=== PATIENT | female | born 1940 | race Caucasian/White ===

== ENCOUNTER → 2018-01-11 10:50 | Outpatient (CLI) | payer MEDICARE, BC, SELFPAY ==
[2018-01-11 12:29] LABS: Alanine Aminotransferase 30 IU/L (9-52); Albumin 3.7 g/dL (3.5-5.0); Albumin Globulin Ratio 1.2 (1.0-2.8); Alkaline Phosphatase 81 U/L (38-126); Aspartate Aminotransferase 25 IU/L (14-36); BUN Creatinine Ratio 34.3 (6-22); Bilirubin Total 0.5 mg/dL (0.2-1.3); Blood Urea Nitrogen 24 mg/dL (7-17); Calcium 9.1 mg/dL (8.4-10.2); Carbon Dioxide 31 mmol/L (22-32); Chloride 101 mmol/L (98-107); Estimated Glomerular Filt Rate > 60.0 mL/min (>60); Globulin 3.2 g/dL (1.7-4.1); Glucose 87 mg/dL (80-110); HEMOLYSIS 21 (0-50); Potassium 4.5 mmol/L (3.4-5.1); Sodium 141 mmol/L (137-145); Total Protein 6.9 g/dL (6.3-8.2)
== END ==
PROVIDERS: PCP Family Medicine; Visit Provider Internal Medicine Cardiovascular Disease
DX: I48.0 Paroxysmal atrial fibrillation (principal); R00.2 Palpitations
CPT/HCPCS: 36415; 80053

== ENCOUNTER 2018-01-19 07:28 | Day surgery (SDC) | payer MEDICARE, BC, SELFPAY ==
[2018-01-19] MEDS: PROPARACAINE 0.5% OPHTH SOL 2 DROPS EYE-OP (08:21)
[2018-01-19 08:25] VITALS: BP 163/80; PULSE 59; RESP 16; TEMP 36.3; O2SAT 96; BMI 23.4
[2018-01-19] MEDS: CATARACT EYE COMPOUND (10 DROPS/SYRINGE) 3 DROPS EYE-OP (08:26)
--- NOTE | 2018-01-19 09:14 | PM.PREOP ---
Pre-operative Note Interval Note Pre-op Check: History & Physical Reviewed by Physician
[2018-01-19] MEDS: CHONDROIDTIN/SOD HYALURONATE 1.05 ML SYRINGE INTRAOCULA (09:23)
[2018-01-19] MEDS: MOXIFLOXACIN OPHTH DROPS 3 ML BOTTLE 2 DROPS INJ (09:23)
[2018-01-19] MEDS: TRIAMCINOLONE 50 MG/5 ML VIAL INJ (09:23)
[2018-01-19] MEDS: LIDOCAINE JELLY 2% 5 ML 1 APPLIC TOP (09:24)
[2018-01-19] MEDS: BALANCED SALT IRRIG SOLN NO.2 500 ML, EPINEPHrine 1 MG IRR (09:24)
[2018-01-19] MEDS: TETRACAINE 0.5% OPHTH DROPS 15 ML 2 DROPS EYE-LEFT (09:25)
[2018-01-19] MEDS: PHENYLEPHRINE/LIDOCAINE 3ML VIAL (OR) EYE-OP (09:26)
--- NOTE | 2018-01-19 09:34 | P.OP_ITS ---
Operative Date/Time/Diagnoses - Pre-op diagnosis: Cataract Left eye Post-op diagnosis: same Procedure & Clinicians Surgeon: Zuhair Helton Anesthesia Type: MAC +/- and Sedation Operative Notes Procedure in detail: Patient brought to the operating suite. Tetracaine drops placed in the left eye. Patient was prepped and draped in sterile manner. Wire lid speculum was placed in the eye. Betadine drops were placed on the eye. This was irrigated. Lidocaine jelly was placed on the eye. A paracentesis port was created with a side-port blade. 0.1 mL 1% preservative free lidocaine was injected into the anterior chamber. The anterior chamber was deepened with viscoelastic. 2.6 mm keratome was used to create a temporal clear corneal incision. Cystotome and Utrata forceps were used to create continuous tear capsulorrhexis. Balanced salt solution was used to hydro dissect the nucleus. The phacoemulsification handpiece was inserted and the nucleus was removed using the stop and chop technique. The irrigation aspiration handpiece was inserted and the remaining cortex was removed. Anterior chamber was deepened with viscoelastic. An Castro ZCB00 intraocular lens with a power of 22.5 was injected into the capsular bag. Irrigation aspiration handpiece was inserted and the remaining viscoelastic was removed. Incision was hydrated with balanced salt solution and found to be leak free with pressure with Weck- Mary sponges. 0.1 mL Vigamox injected anterior chamber. 0.3 mL Kenalog 10 mg was injected subconjunctivally. Lid speculum was removed. The patient left the operating room in excellent condition. Complications: none Condition: stable Disposition: same day surgery
[2018-01-19 09:39] VITALS: BP 139/74; PULSE 56; RESP 15; TEMP 36.3; O2SAT 98
== END 2018-01-19 09:51 ==
PROVIDERS: Family Provider Family Medicine; PCP Family Medicine; Visit Provider Ophthalmology
DX: H25.12 Age-related nuclear cataract, left eye (principal); I10 Essential (primary) hypertension
CPT/HCPCS: J0171; J2250; J3010; J3301

== ENCOUNTER 2018-02-16 07:01 | Day surgery (SDC) | payer MEDICARE, BC, SELFPAY ==
[2018-02-16 07:12] VITALS: BMI 23.4
[2018-02-16] MEDS: PROPARACAINE 0.5% OPHTH SOL 2 DROPS EYE-OP (07:18)
[2018-02-16 07:20] VITALS: BP 151/75; PULSE 52; RESP 20; TEMP 36; O2SAT 99
[2018-02-16] MEDS: CATARACT EYE COMPOUND (10 DROPS/SYRINGE) 3 DROPS EYE-OP (07:31)
--- NOTE | 2018-02-16 08:24 | SUR.OPER ---
Supine on eye stretcher, head on extension cradle secured with tape. Arms tucked at sides with blanket. Pillow under knees.
--- NOTE | 2018-02-16 08:29 | PM.PREOP ---
Pre-operative Note Interval Note Pre-op Check: History & Physical Reviewed by Physician
--- NOTE | 2018-02-16 08:30 | P.OP_ITS ---
Operative Date/Time/Diagnoses Pre-op diagnosis: Cataract Right eye Post-op diagnosis: same Procedure & Clinicians Procedure: Cataract Surgery Same procedure as scheduled: Yes Surgeon: Zuhair Helton Anesthesia Type: MAC +/- and Sedation Operative Notes Procedure in detail: Patient brought to the operating suite. Tetracaine drops placed in the right eye. Patient was prepped and draped in sterile manner. Wire lid speculum was placed in the eye. Betadine drops were placed on the eye. This was irrigated. Lidocaine jelly was placed on the eye. A paracentesis port was created with a side-port blade. 0.1 mL 1% preservative free lidocaine was injected into the anterior chamber. The anterior chamber was deepened with viscoelastic. 2.6 mm keratome was used to create a temporal clear corneal incision. Cystotome and Utrata forceps were used to create continuous tear capsulorrhexis. Balanced salt solution was used to hydro dissect the nucleus. The phacoemulsification handpiece was inserted and the nucleus was removed using the stop and chop technique. The irrigation aspiration handpiece was inserted and the remaining cortex was removed. Anterior chamber was deepened with viscoelastic. An Castro ZCB00 intraocular lens with a power of 22.5 was injected into the capsular bag. Irrigation aspiration handpiece was inserted and the remaining viscoelastic was removed. Incision was hydrated with balanced salt solution and found to be leak free with pressure with Weck- Mary sponges. 0.1 mL Vigamox injected anterior chamber. 0.3 mL Kenalog 10 mg was injected subconjunctivally. Lid speculum was removed. The patient left the operating room in excellent condition. Complications: none Condition: stable Disposition: same day surgery
[2018-02-16] MEDS: TRIAMCINOLONE 50 MG/5 ML VIAL INJ (08:34)
[2018-02-16] MEDS: PHENYLEPHRINE/LIDOCAINE 3ML VIAL (OR) EYE-OP (08:35)
[2018-02-16] MEDS: BALANCED SALT IRRIG SOLN NO.2 500 ML, EPINEPHrine 1 MG IRR (08:35)
[2018-02-16] MEDS: TETRACAINE 0.5% OPHTH DROPS 15 ML 2 DROPS EYE-RIGHT (08:36)
[2018-02-16] MEDS: CHONDROIDTIN/SOD HYALURONATE 1.05 ML SYRINGE INTRAOCULA (08:36)
[2018-02-16] MEDS: MOXIFLOXACIN OPHTH DROPS 3 ML BOTTLE 2 DROPS INJ (08:37)
[2018-02-16] MEDS: LIDOCAINE JELLY 2% 5 ML 1 APPLIC TOP (08:37)
[2018-02-16 08:50] VITALS: BP 129/64; PULSE 53; RESP 20; TEMP 36; O2SAT 93
== END 2018-02-16 08:53 | disposition home or self-care (01) ==
PROVIDERS: Family Provider Family Medicine; PCP Family Medicine; Visit Provider Ophthalmology
DX: H25.11 Age-related nuclear cataract, right eye (principal); I10 Essential (primary) hypertension
CPT/HCPCS: J0171; J2250; J3010; J3301; V2787

== ENCOUNTER → 2018-03-17 08:22 | Outpatient (CLI) | payer MEDICARE, BC, SELFPAY ==
--- NOTE | 2018-03-17 | DI.MG.S_ITS ---
BILATERAL DIGITAL SCREENING MAMMOGRAM 3D/2D WITH CAD: 03/17/2018 Comparison is made to exams dated: 03/10/2016 mammogram - [facility], 01/15/2006 mammogram, and 11/15/2004 mammogram - [facility]. The tissue of both breasts is heterogeneously dense. This may lower the sensitivity of mammography. Current study was also evaluated with a Computer Aided Detection (CAD) system. No significant masses, calcifications, or other findings are seen in either breast. There has been no significant interval change. IMPRESSION: NEGATIVE There is no mammographic evidence of malignancy. A 1 year screening mammogram is recommended. This exam was interpreted at Station ID: [id number]. NOTE: For mammograms, a report in lay terms will be sent to the patient. Approximately 15% of breast malignancies will not be visualized mammographically. In the management of a palpable breast mass, a negative mammogram must not discourage biopsy of a clinically suspicious lesion. Electronically Signed By: Rafat terrazas/[email or web address]:03/17/2018 17:26:27 letter sent: Normal Exam ACR BI-RADS Category 1: Negative [id number]
== END ==
PROVIDERS: Family Provider Family Medicine; PCP Family Medicine; Visit Provider Family Medicine
DX: Z12.31 Encounter for screening mammogram for malignant neoplasm of breast (principal)
CPT/HCPCS: 77063; 77067

== ENCOUNTER → 2018-06-16 14:02 | Outpatient (CLI) | payer MEDICARE, BC, SELFPAY ==
[2018-06-16 15:03] LABS: Blood Urea Nitrogen 33 mg/dL (7-17); Carbon Dioxide 31 mmol/L (22-32); Chloride 103 mmol/L (98-107); Estimated Glomerular Filt Rate > 60.0 mL/min (>60); Glucose 96 mg/dL (80-110); HEMOLYSIS 23 (0-50); Potassium 4.1 mmol/L (3.4-5.1); Sodium 142 mmol/L (137-145)
== END ==
PROVIDERS: Family Provider Family Medicine; PCP Family Medicine; Visit Provider Internal Medicine Cardiovascular Disease
DX: I48.0 Paroxysmal atrial fibrillation (principal)
CPT/HCPCS: 36415; 80048

== ENCOUNTER 2019-02-25 15:15 | Outpatient (RCR) | payer MEDICARE, BC, SELFPAY ==
--- NOTE | 2018-12-31 14:30 | PT.OPPOC ---
Current Diagnoses Pain in right shoulder (12/31/18) Cervicalgia (12/31/18) Provider Visit Care Team Role Provider Type Amalia Watson DO Primary Care Provider Physician Specialty: Family Practice Address: [address] [place] [address], [id number] Email: [email or web address] Anguiano Attending Provider Advanced Service Station Manager Specialty: [facility] Practice Address: [address] [place] [address], [id number] Email: Plan Of Care PT-OP-T Assessment and Plan Start: 12/31/18 16:47 Freq: Status: Active Protocol: Document 12/31/18 14:30 DLM (Rec: 12/31/18 18:09 DLM [id number]) Physical Therapy Assessment Rehab Potential Rehabilitation Potential Good Evaluation Complexity Number of Personal Factors/Comorbidities 1-2 Number of Body Systems Impaired 4 or More Clinical Presentation at Evaluation Evolving Impairments Impairments Functional Activities Pain Posture ROM Soft Tissue Mobility Strength Goals Four Impairment Limited functional use of right UE Short Term Goal (STG) Pt will be able to do her normal ADL's without increased pain STG Duration 4 weeks Rn Maternal Child Goal (LTG) Pt will be able to return to normal household and recreational activities without increased pain LTG Duration 6 weeks Three Impairment Impaired posture Short Term Goal (STG) Resolve right sidebend of her neck in resting position STG Duration 4 weeks Rn Maternal Child Goal (LTG) Pt will demonstrate erect posture with increased postural awareness LTG Duration 6 weeks Two Impairment Limited cervical AROM Short Term Goal (STG) Increase her cervical flexion and rotation to 75%, increase her lateral flexion to 20% STG Duration 4 weeks Rn Maternal Child Goal (LTG) Increase her lateral flexion to 50% LTG Duration 6 weeks One Impairment Pain at 4/10, constant Short Term Goal (STG) Decrease her cervical area pain to intermittent STG Duration 4 weeks Longterm Goal (LTG) Decrease her cervical pain to 1/10 or less LTG Duration 6 weeks Assessment Summary Assessment Pt presents with an acute cervical strain. Her case is complicated by a baseline stiffness in the cervical report per pt reports. She has no radicular symptoms at this time but does have increased cervical pain with use of her right UE. Pt is very active at baseline. She is a good candidate for Physical therapy to address the above impairments. Physical Therapy Plan Frequency and Duration Frequency of Treatment 2x/Week Duration of Treatment 6 weeks Plan of Care Start Date 12/31/18 Plan of Care End Date 03/02/19 Therapeutic Interventions Therapeutic Interventions Home Exercise Program Joint Mobilizations Manual Therapy Patient/Caregiver Education Self-Care/Home Management Soft Tissue Mobilization Taping Therapeutic Activities Therapeutic Exercises Modalities Cold Pack/Ice Massage Electric Stimulation Hot Packs Ultrasound Next Visit Focus/Plan Next Note Type Treatment Note Next Visit Plan start cervical and postural exercises, trial UBE Plan of Care Dates Plan of Care Start Date 12/31/18 Plan of Care End Date 03/02/19 Please Sign and Return: I have reviewed this Plan of Care and certify that the skilled therapy services above are required to meet the patient?s needs. Physician Signature Date Printed Name and Credentials
--- NOTE | 2018-12-31 14:30 | PT.OIE ---
Addendum entered and electronically signed by Maddi Grover, PT 01/03/19 15:16: Ultrasound also performed to right cervical area in sitting x 8 min @1.3 W/cm2, continuous Original Note: Current Diagnoses Pain in right shoulder (12/31/18) Cervicalgia (12/31/18) Past Surgical History Status post hernia repair Status post hysterectomy Provider Visit Care Team Role Provider Type Amalai Watson DO Primary Care Provider Physician Specialty: Family Practice Address: [address] [place] [address], [id number] Email: [email or web address] KEMAL Anguiano Attending Provider Advanced Unit Educator Specialty: [facility] Practice Address: [address] [place] [address], [id number] Email: Physical Therapy Initial Evaluation PT-OP-A Visit Information Start: 12/31/18 16:47 Freq: Status: Active Protocol: Document 12/31/18 14:30 DLM (Rec: 12/31/18 18:09 DLM [id number]) Out-Patient Physical Therapy Visit Information Visit Information Visit Type Initial Evaluation Visit Start Time 14:30 Visit Stop Time 15:20 Total Visit Minutes 50 Visit Number 1 Number of SENIOR JAVA UI DEVELOPER Visits 0 Evaluation Information Evaluation Date 12/31/18 PT-OP-B Current Condition Start: 12/31/18 16:47 Freq: Status: Active Protocol: Document 12/31/18 14:30 DLM (Rec: 12/31/18 18:09 DLM [id number]) Current Condition History of Current Condition Onset Date 12/29/18 Current Complaints right sided neck pain History of Current Condition She woke up with severe pain in the right side of her neck. She is not aware of any injury. The day before she was weeding in her garden. One week ago she was helping her children move. Before that she was staying with family sleeping on an air mattress. She has noted stiffness in her neck for a while but it is never this painful. She is also having pain in her neck if she tries to lift or push with her right UE. She saw her physician today. Prior Treatments and Tests none Future Testing and Treatments Planned none Prior Functional Status Baseline Function- ADL's Independent Baseline Function- Mobility Independent Baseline Function- Gait Independent without device, community distances Baseline Function- Recreation/Hobbies She does exercises classes/ routines. She has notes stiffness in her neck that limits how far she can move during exercises. She likes to garden. Current Functional Impairments (Reported) Functional Limitations- ADL's Her had to help her put her bra on today due to the pain. She has increased pain getting clothes out of the closet. She can not push up with right UE. Functional Limitations- Mobility/Gait Her helped her get out of bed today due to the pain. She can not push herself up with right UE to get out of bed. Her gait has not been affected. Functional Limitations- Recreation/ She is unable to garden at Hobbies this time. Personal Factors Other Personal Factors That May Effect Her Spouse is also attending Therapy/Recovery Physical Therapy for neck/back pain. PT-OP-C Subjective Start: 12/31/18 16:47 Freq: Status: Active Protocol: Document 12/31/18 14:30 DLM (Rec: 12/31/18 18:09 [facility] [id number]) OP-PT Pain Assessment Location Right Neck Intensity 4 Scale Used Numeric (1 - 10) Description Aching Tightness Frequency Constant Radiating Location none Pain Aggravating Factors Changing Position Other Pain Aggravating Factors reaching up with right UE, moving head, pushing with right UE Pain Alleviating Factors Meditation Other Pain Alleviating Factors Tylenol has helped Home Pain Medication Use Pain Medications Used Yes: Aspirin and tylenol used Pain Behaviors Pain Behaviors Guarding Wincing PT-OP-J Posture/Palpation/Skin Start: 12/31/18 16:47 Freq: Status: Active Protocol: Document 12/31/18 14:30 DLM (Rec: 12/31/18 18:09 [facility] [id number]) Posture Evaluation Position Sitting Evaluation View Anterior Head/C-Spine Posture Side Bent Right Forward Head Shoulder Posture (L) Rounded (R) Rounded (R) Elevated Palpation Assessment Location One Palpation Location Cervical Palpation Findings Soft Tissue Tightness Tenderness Trigger Point Palpation Details right cervical tenderness with point tenderness at C5, tightness right UT/rhomboids/ scalenes, tightness right thoracic paraspinals PT-OP-K Range of Motion Start: 12/31/18 16:47 Freq: Status: Active Protocol: Document 12/31/18 14:30 DLM (Rec: 12/31/18 18:09 DLM [id number]) Cervical Spine Range of Motion Cervical Spine Active Percentage Testing Position Sitting Flexion 50 Extension 75 Rotation Left 50 Rotation Right 50 Lateral Flexion Left 0 Lateral Flexion Right 2 ROM Limitations Soft Tissue Tightness Pain Comments pain with bilateral rotation and left lateral flexion Shoulder Goniometric Range of Motion Shoulder Measured in Degrees Left Active Shoulder ROM WFL Yes Right Active Shoulder ROM WFL Yes PT-OP-L Special Tests Start: 12/31/18 16:47 Freq: Status: Active Protocol: Document 12/31/18 14:30 DLM (Rec: 12/31/18 18:10 DLM [id number]) Special Tests Cervical Spine Special Tests Foraminal Compression Test Results negative Traction Test Results increased cervical pain on right PT-OP-M Strength Start: 12/31/18 16:47 Freq: Status: Active Protocol: Document 12/31/18 14:30 DLM (Rec: 12/31/18 18:09 DL [id number]) Cervical Spine Strength Cervical Spine Manual Muscle Testing Testing Position Sitting Flexion (C1-2) 4- Good- Extension 4- Good- Rotation Left 4 Good Rotation Right 4 Good Lateral Flexion Left (C3) 4- Good- Lateral Flexion Right (C3) 4- Good- Shoulder Strength Shoulder Manual Muscle Testing Right Flexion 5 Normal Extension 5 Normal Abduction (C5) 5 Normal Adduction 5 Normal External Rotation 5 Normal Internal Rotation 5 Normal Left Flexion 5 Normal Extension 5 Normal Abduction (C5) 5 Normal Adduction 5 Normal External Rotation 5 Normal Internal Rotation 5 Normal Elbow/Forearm Strength Elbow and Forearm Manual Muscle Testing Right Flexion (C6) 5 Normal Extension (C7) 5 Normal Left Flexion (C6) 5 Normal Extension (C7) 5 Normal Wrist Strength Wrist Manual Muscle Testing Right Flexion (C7) 5 Normal Extension (C6) 5 Normal Left Flexion (C7) 5 Normal Extension (C6) 5 Normal Hand Home Health Lvn/Pinch Strength Hand Dominance Hand Dominance Right PT-OP-Q Treatments Start: 12/31/18 16:47 Freq: Status: Active Protocol: Document 12/31/18 14:30 DLM (Rec: 12/31/18 18:09 DLM [id number]) Therapeutic Exercises Sitting Exercises 2 Sitting Exercise Name cervical AROM Side bilateral Reps/Minutes 5 each motion Comments pain-free range 1 Sitting Exercise Name posterior shoulder rolls Side bilateral Reps/Minutes 10 PT-OP-T Assessment and Plan Start: 12/31/18 16:47 Freq: Status: Active Protocol: Document 12/31/18 14:30 DLM (Rec: 12/31/18 18:09 DLM [id number]) Physical Therapy Assessment Rehab Potential Rehabilitation Potential Good Evaluation Complexity Number of Personal Factors/Comorbidities 1-2 Number of Body Systems Impaired 4 or More Clinical Presentation at Evaluation Evolving Impairments Impairments Functional Activities Pain Posture ROM Soft Tissue Mobility Strength Goals Four Impairment Limited functional use of right UE Short Term Goal (STG) Pt will be able to do her normal ADL's without increased pain STG Duration 4 weeks Conference Service Coordinator Goal (LTG) Pt will be able to return to normal household and recreational activities without increased pain LTG Duration 6 weeks Three Impairment Impaired posture Short Term Goal (STG) Resolve right sidebend of her neck in resting position STG Duration 4 weeks Conference Service Coordinator Goal (LTG) Pt will demonstrate erect posture with increased postural awareness LTG Duration 6 weeks Two Impairment Limited cervical AROM Short Term Goal (STG) Increase her cervical flexion and rotation to 75%, increase her lateral flexion to 20% STG Duration 4 weeks Group Home Goal (LTG) Increase her lateral flexion to 50% LTG Duration 6 weeks One Impairment Pain at 4/10, constant Short Term Goal (STG) Decrease her cervical area pain to intermittent STG Duration 4 weeks Conference Service Coordinator Goal (LTG) Decrease her cervical pain to 1/10 or less LTG Duration 6 weeks Assessment Summary Assessment Pt presents with an acute cervical strain. Her case is complicated by a baseline stiffness in the cervical report per pt reports. She has no radicular symptoms at this time but does have increased cervical pain with use of her right UE. Pt is very active at baseline. She is a good candidate for Physical therapy to address the above impairments. Physical Therapy Plan Frequency and Duration Frequency of Treatment 2x/Week Duration of Treatment 6 weeks Plan of Care Start Date 12/31/18 Plan of Care End Date 03/02/19 Therapeutic Interventions Therapeutic Interventions Home Exercise Program Joint Mobilizations Manual Therapy Patient/Caregiver Education Self-Care/Home Management Soft Tissue Mobilization Taping Therapeutic Activities Therapeutic Exercises Modalities Cold Pack/Ice Massage Electric Stimulation Hot Packs Ultrasound Next Visit Focus/Plan Next Note Type Treatment Note Next Visit Plan start cervical and postural exercises, trial UBE
--- NOTE | 2019-01-03 11:45 | PT.OTN ---
Current Diagnoses Pain in right shoulder (01/03/19) Cervicalgia (01/03/19) Physical Therapy Treatment Note PT-OP-A Visit Information Start: 12/31/18 16:47 Freq: Status: Active Protocol: Document 01/03/19 11:45 DLM (Rec: 01/03/19 15:14 DLM [id number]) Out-Patient Physical Therapy Visit Information Visit Information Visit Type Treatment Note Visit Start Time 11:43 Visit Stop Time 12:22 Total Visit Minutes 39 Visit Number 2 Number of WIRE COILER MACHINE OPERATOR Visits 0 Evaluation Information Evaluation Date 12/31/18 Precautions Precautions cardiac ablation scheduled for January 05 PT-OP-B Current Condition Start: 12/31/18 16:47 Freq: Status: Active Protocol: Document 12/31/18 14:30 DLM (Rec: 12/31/18 18:09 DLM [id number]) Current Condition History of Current Condition Onset Date 12/29/18 Current Complaints right sided neck pain History of Current Condition She woke up with severe pain in the right side of her neck. She is not aware of any injury. The day before she was weeding in her garden. One week ago she was helping her children move. Before that she was staying with family sleeping on an air mattress. She has noted stiffness in her neck for a while but it is never this painful. She is also having pain in her neck if she tries to lift or push with her right UE. She saw her physician today. Prior Treatments and Tests none Future Testing and Treatments Planned none Prior Functional Status Baseline Function- ADL's Independent Baseline Function- Mobility Independent Baseline Function- Gait Independent without device, community distances Baseline Function- Recreation/Hobbies She does exercises classes/ routines. She has notes stiffness in her neck that limits how far she can move during exercises. She likes to garden. Current Functional Impairments (Reported) Functional Limitations- ADL's Her had to help her put her bra on today due to the pain. She has increased pain getting clothes out of the closet. She can not push up with right UE. Functional Limitations- Mobility/Gait Her helped her get out of bed today due to the pain. She can not push herself up with right UE to get out of bed. Her gait has not been affected. Functional Limitations- Recreation/ She is unable to garden at Hobbies this time. Personal Factors Other Personal Factors That May Effect Her Spouse is also attending Therapy/Recovery Physical Therapy for neck/back pain. PT-OP-C Subjective Start: 12/31/18 16:47 Freq: Status: Active Protocol: Document 01/03/19 11:45 DLM (Rec: 01/03/19 15:15 DLM [id number]) OP-PT Subjective Patient Comments Patient Comments She reports she has been better since Thursday appt. The Tylenol still helps and she notes more soreness if she does not take it. She feels ok to drive now. Cardiac ablation scheduled for 01/05. Patient Reported Progress Improving PT-OP-J Posture/Palpation/Skin Start: 12/31/18 16:47 Freq: Status: Active Protocol: Document 12/31/18 14:30 DLM (Rec: 12/31/18 18:09 DLM [id number]) Posture Evaluation Position Sitting Evaluation View Anterior Head/C-Spine Posture Side Bent Right Forward Head Shoulder Posture (L) Rounded (R) Rounded (R) Elevated Palpation Assessment Location One Palpation Location Cervical Palpation Findings Soft Tissue Tightness Tenderness Trigger Point Palpation Details right cervical tenderness with point tenderness at C5, tightness right UT/rhomboids/ scalenes, tightness right thoracic paraspinals PT-OP-K Range of Motion Start: 12/31/18 16:47 Freq: Status: Active Protocol: Document 12/31/18 14:30 DLM (Rec: 12/31/18 18:09 DLM [id number]) Cervical Spine Range of Motion Cervical Spine Active Percentage Testing Position Sitting Flexion 50 Extension 75 Rotation Left 50 Rotation Right 50 Lateral Flexion Left 0 Lateral Flexion Right 2 ROM Limitations Soft Tissue Tightness Pain Comments pain with bilateral rotation and left sidebending Shoulder Goniometric Range of Motion Shoulder Measured in Degrees Left Active Shoulder ROM WFL Yes Right Active Shoulder ROM WFL Yes PT-OP-L Special Tests Start: 12/31/18 16:47 Freq: Status: Active Protocol: Document 12/31/18 14:30 DLM (Rec: 12/31/18 18:10 DLM [id number]) Special Tests Cervical Spine Special Tests Foraminal Compression Test Results negative Traction Test Results increased cervical pain on right PT-OP-M Strength Start: 12/31/18 16:47 Freq: Status: Active Protocol: Document 12/31/18 14:30 DLM (Rec: 12/31/18 18:09 DLM [id number]) Cervical Spine Strength Cervical Spine Manual Muscle Testing Testing Position Sitting Flexion (C1-2) 4- Good- Extension 4- Good- Rotation Left 4 Good Rotation Right 4 Good Lateral Flexion Left (C3) 4- Good- Lateral Flexion Right (C3) 4- Good- Shoulder Strength Shoulder Manual Muscle Testing Right Flexion 5 Normal Extension 5 Normal Abduction (C5) 5 Normal Adduction 5 Normal External Rotation 5 Normal Internal Rotation 5 Normal Left Flexion 5 Normal Extension 5 Normal Abduction (C5) 5 Normal Adduction 5 Normal External Rotation 5 Normal Internal Rotation 5 Normal Elbow/Forearm Strength Elbow and Forearm Manual Muscle Testing Right Flexion (C6) 5 Normal Extension (C7) 5 Normal Left Flexion (C6) 5 Normal Extension (C7) 5 Normal Wrist Strength Wrist Manual Muscle Testing Right Flexion (C7) 5 Normal Extension (C6) 5 Normal Left Flexion (C7) 5 Normal Extension (C6) 5 Normal Hand Application Manager/Pinch Strength Hand Dominance Hand Dominance Right PT-OP-Q Treatments Start: 12/31/18 16:47 Freq: Status: Active Protocol: Document 01/03/19 11:45 DLM (Rec: 01/03/19 16:55 DLM [id number]) Therapeutic Exercises Supine Exercises 1 Supine Exercise Name foam roll postural stretch Equipment Used 1/2 foam roll Comments UE's at sides and over-head Sitting Exercises 4 Sitting Exercise Name UT stretch with towel Side bilateral Reps/Minutes 30 sec hold x 3 reps each side 3 Sitting Exercise Name scapular pinches Side bilateral Reps/Minutes 10 reps 2 Sitting Exercise Name cervical AROM Side bilateral Reps/Minutes 5 each motion Comments pain only with right rotation today 1 Sitting Exercise Name posterior shoulder rolls Side bilateral Reps/Minutes 10 PT-OP-R Modalities Start: 12/31/18 16:47 Freq: Status: Active Protocol: Document 01/03/19 11:45 DLM (Rec: 01/03/19 16:44 DLM [id number]) Ultrasound Therapy Treatment Right Neck Treatment Duration (minutes) 8 Patient Position Sitting Coupling Medium Ultrasound Gel Applicator Size (cm2) 10 Mode Setting Continuous Intensity Setting (w/cm2) 1.3 PT-OP-T Assessment and Plan Start: 12/31/18 16:47 Freq: Status: Active Protocol: Document 01/03/19 11:45 DLM (Rec: 01/03/19 16:51 DLM [id number]) Physical Therapy Assessment Goals Four Impairment Limited functional use of right UE Short Term Goal (STG) Pt will be able to do her normal ADL's without increased pain STG Duration 4 weeks Penitentiary Goal (LTG) Pt will be able to return to normal household and recreational activities without increased pain LTG Duration 6 weeks Three Impairment Impaired posture Short Term Goal (STG) Resolve right sidebend of her neck in resting position STG Duration 4 weeks Senior Asic Design Engineer Goal (LTG) Pt will demonstrate erect posture with increased postural awareness LTG Duration 6 weeks Two Impairment Limited cervical AROM Short Term Goal (STG) Increase her cervical flexion and rotation to 75%, increase her lateral flexion to 20% STG Duration 4 weeks Senior Asic Design Engineer Goal (LTG) Increase her lateral flexion to 50% LTG Duration 6 weeks One Impairment Pain at 4/10, constant Short Term Goal (STG) Decrease her cervical area pain to intermittent STG Duration 4 weeks Senior Asic Design Engineer Goal (LTG) Decrease her cervical pain to 1/10 or less LTG Duration 6 weeks Assessment Summary Assessment She reports good improvement in her neck pain. Improved ROM noted. No point tenderness noted to palpation of cervical area today. She tolerated her exercises well this visit. She feels the US helps her pain/tightness. She reports her physician has told her she will need to rest after her heart procedure for about a week. Will plan to resume therapy after that time. Physical Therapy Plan Frequency and Duration Frequency of Treatment 2x/Week Duration of Treatment 6 weeks Plan of Care Start Date 12/31/18 Plan of Care End Date 03/02/19 Therapeutic Interventions Therapeutic Interventions Home Exercise Program Joint Mobilizations Manual Therapy Patient/Caregiver Education Self-Care/Home Management Soft Tissue Mobilization Taping Therapeutic Activities Therapeutic Exercises Modalities Cold Pack/Ice Massage Electric Stimulation Hot Packs Ultrasound Next Visit Focus/Plan Next Note Type Treatment Note Next Visit Plan will be off for about a week after cardiac procedure, STM and continue postural exercises
--- NOTE | 2019-01-14 09:00 | PT.OTN ---
Current Diagnoses Pain in right shoulder (01/14/19) Cervicalgia (01/14/19) Physical Therapy Treatment Note PT-OP-A Visit Information Start: 12/31/18 16:47 Freq: Status: Active Protocol: Document 01/14/19 09:00 DLM (Rec: 01/14/19 10:17 DLM [id number]) Out-Patient Physical Therapy Visit Information Visit Information Visit Type Treatment Note Visit Start Time 09:00 Visit Stop Time 09:50 Total Visit Minutes 50 Visit Number 3 Number of SUPPORTIVE EMPLOYMENT CASE MANAGER Visits 0 Evaluation Information Evaluation Date 12/31/18 Precautions Precautions cardiac ablation scheduled for January 05, physician not able to complete so another appt in January PT-OP-B Current Condition Start: 12/31/18 16:47 Freq: Status: Active Protocol: Document 12/31/18 14:30 DLM (Rec: 12/31/18 18:09 DLM [id number]) Current Condition History of Current Condition Onset Date 12/29/18 Current Complaints right sided neck pain History of Current Condition She woke up with severe pain in the right side of her neck. She is not aware of any injury. The day before she was weeding in her garden. One week ago she was helping her children move. Before that she was staying with family sleeping on an air mattress. She has noted stiffness in her neck for a while but it is never this painful. She is also having pain in her neck if she tries to lift or push with her right UE. She saw her physician today. Prior Treatments and Tests none Future Testing and Treatments Planned none Prior Functional Status Baseline Function- ADL's Independent Baseline Function- Mobility Independent Baseline Function- Gait Independent without device, community distances Baseline Function- Recreation/Hobbies She does exercises classes/ routines. She has notes stiffness in her neck that limits how far she can move during exercises. She likes to garden. Current Functional Impairments (Reported) Functional Limitations- ADL's Her had to help her put her bra on today due to the pain. She has increased pain getting clothes out of the closet. She can not push up with right UE. Functional Limitations- Mobility/Gait Her helped her get out of bed today due to the pain. She can not push herself up with right UE to get out of bed. Her gait has not been affected. Functional Limitations- Recreation/ She is unable to garden at Hobbies this time. Personal Factors Other Personal Factors That May Effect Her Spouse is also attending Therapy/Recovery Physical Therapy for neck/back pain. PT-OP-C Subjective Start: 12/31/18 16:47 Freq: Status: Active Protocol: Document 01/14/19 09:00 DLM (Rec: 01/14/19 10:17 DLM [id number]) OP-PT Subjective Patient Comments Patient Comments Her neck has been better. She still has pain turning to the right. Patient Reported Progress Improving Patient Questionnaires Neck Disability Index NDI Score 10/50= 20% Neck Disability Index Impairment 20 to 39% Impaired (Score 10- 19) OP-PT Pain Assessment Location Right Neck Intensity 2 Scale Used Numeric (1 - 10) Description Aching Tightness Frequency Intermittent Other Pain Aggravating Factors turning head right PT-OP-J Posture/Palpation/Skin Start: 12/31/18 16:47 Freq: Status: Active Protocol: Document 12/31/18 14:30 DLM (Rec: 12/31/18 18:09 DLM [id number]) Posture Evaluation Position Sitting Evaluation View Anterior Head/C-Spine Posture Side Bent Right Forward Head Shoulder Posture (L) Rounded (R) Rounded (R) Elevated Palpation Assessment Location One Palpation Location Cervical Palpation Findings Soft Tissue Tightness Tenderness Trigger Point Palpation Details right cervical tenderness with point tenderness at C5, tightness right UT/rhomboids/ scalenes, tightness right thoracic paraspinals PT-OP-K Range of Motion Start: 12/31/18 16:47 Freq: Status: Active Protocol: Document 01/14/19 09:00 DLM (Rec: 01/14/19 10:19 DLM [id number]) Cervical Spine Range of Motion Cervical Spine Active Percentage Testing Position Sitting Flexion 80 Extension 90 Rotation Left 75 Rotation Right 60 Lateral Flexion Left 20 Lateral Flexion Right 25 ROM Limitations Soft Tissue Tightness Pain Comments right cervical pain with right rotation PT-OP-L Special Tests Start: 12/31/18 16:47 Freq: Status: Active Protocol: Document 12/31/18 14:30 DLM (Rec: 12/31/18 18:10 DLM [id number]) Special Tests Cervical Spine Special Tests Foraminal Compression Test Results negative Traction Test Results increased cervical pain on right PT-OP-M Strength Start: 12/31/18 16:47 Freq: Status: Active Protocol: Document 12/31/18 14:30 DLM (Rec: 12/31/18 18:09 DLM [id number]) Cervical Spine Strength Cervical Spine Manual Muscle Testing Testing Position Sitting Flexion (C1-2) 4- Good- Extension 4- Good- Rotation Left 4 Good Rotation Right 4 Good Lateral Flexion Left (C3) 4- Good- Lateral Flexion Right (C3) 4- Good- Shoulder Strength Shoulder Manual Muscle Testing Right Flexion 5 Normal Extension 5 Normal Abduction (C5) 5 Normal Adduction 5 Normal External Rotation 5 Normal Internal Rotation 5 Normal Left Flexion 5 Normal Extension 5 Normal Abduction (C5) 5 Normal Adduction 5 Normal External Rotation 5 Normal Internal Rotation 5 Normal Elbow/Forearm Strength Elbow and Forearm Manual Muscle Testing Right Flexion (C6) 5 Normal Extension (C7) 5 Normal Left Flexion (C6) 5 Normal Extension (C7) 5 Normal Wrist Strength Wrist Manual Muscle Testing Right Flexion (C7) 5 Normal Extension (C6) 5 Normal Left Flexion (C7) 5 Normal Extension (C6) 5 Normal Hand Concert Promoter/Pinch Strength Hand Dominance Hand Dominance Right PT-OP-Q Treatments Start: 12/31/18 16:47 Freq: Status: Active Protocol: Document 01/14/19 09:00 DLM (Rec: 01/14/19 10:17 DLM [id number]) Cardio Equipment Upper Body Ergometer (UBE) Duration (Minutes) 6 Other 3' forward and 3' backward Therapeutic Exercises Supine Exercises 1 Supine Exercise Name foam roll postural stretch Equipment Used 1/2 foam roll Comments UE's at sides and over-head Sitting Exercises 4 Sitting Exercise Name UT stretch holding edge of mat Side bilateral Reps/Minutes 20 sec hold x 3 reps each side 3 Sitting Exercise Name scapular pinches Side bilateral Reps/Minutes 10 reps 2 Sitting Exercise Name cervical AROM Side bilateral Reps/Minutes 5 each motion Comments pain only with right rotation today 1 Sitting Exercise Name posterior shoulder rolls Side bilateral Reps/Minutes 10 Manual Therapy Treatment Soft Tissue Mobilization 1 Body Location cervical area and UT's Mobilization Type Cross-Friction Sustained Pressure Trigger Point Release Intensity/Depth Moderate Body Position Supine Joint Mobilizations 1 Joint cervical spine Direction multi Grade II Body Position Supine Manual Traction Cervical Comments increased pain with any attempt PT-OP-R Modalities Start: 12/31/18 16:47 Freq: Status: Active Protocol: Document 01/03/19 11:45 DLM (Rec: 01/03/19 16:44 DLM [id number]) Ultrasound Therapy Treatment Right Neck Treatment Duration (minutes) 8 Patient Position Sitting Coupling Medium Ultrasound Gel Applicator Size (cm2) 10 Mode Setting Continuous Intensity Setting (w/cm2) 1.3 PT-OP-T Assessment and Plan Start: 12/31/18 16:47 Freq: Status: Active Protocol: Document 01/14/19 09:00 DLM (Rec: 01/14/19 10:17 DLM [id number]) Physical Therapy Assessment Goals Four Impairment Limited functional use of right UE Short Term Goal (STG) Pt will be able to do her normal ADL's without increased pain. 14- Met STG Duration 4 weeks Retirement Goal (LTG) Pt will be able to return to normal household and recreational activities without increased pain LTG Duration 6 weeks Three Impairment Impaired posture Short Term Goal (STG) Resolve right sidebend of her neck in resting position. 01/14- Improving STG Duration 4 weeks Retirement Goal (LTG) Pt will demonstrate erect posture with increased postural awareness LTG Duration 6 weeks Two Impairment Limited cervical AROM Short Term Goal (STG) Increase her cervical flexion and rotation to 75%, increase her lateral flexion to 20%. /14- Met STG Duration 4 weeks Retirement Goal (LTG) Increase her lateral flexion to 50% LTG Duration 6 weeks One Impairment Pain at 4/10, constant Short Term Goal (STG) Decrease her cervical area pain to intermittent. 6/14- Met STG Duration 4 weeks Retirement Goal (LTG) Decrease her cervical pain to 1/10 or less LTG Duration 6 weeks Progress Towards Goals Progress Towards Goals Progressing Toward Goals Progress Comments See comments on each goal Assessment Summary Assessment She has been out of therapy due to cardiac procedure. Her cervical pain continues to slowly improve. She tolerated her exercises well. STM improved her mobility. She continues to have increased pain on right side with any traction of her cervical spine . on right side. Physical Therapy Plan Frequency and Duration Frequency of Treatment 2x/Week Duration of Treatment 6 weeks Plan of Care Start Date 12/31/18 Plan of Care End Date 03/02/19 Therapeutic Interventions Therapeutic Interventions Home Exercise Program Joint Mobilizations Manual Therapy Patient/Caregiver Education Self-Care/Home Management Soft Tissue Mobilization Taping Therapeutic Activities Therapeutic Exercises Modalities Cold Pack/Ice Massage Electric Stimulation Hot Packs Ultrasound Next Visit Focus/Plan Next Note Type Treatment Note Next Visit Plan slowly advance cervical strengthening and postural ex
--- NOTE | 2019-01-18 14:04 | PT.OTN ---
Current Diagnoses Pain in right shoulder (01/18/19) Cervicalgia (01/18/19) Physical Therapy Treatment Note PT-OP-A Visit Information Start: 12/31/18 16:47 Freq: Status: Active Protocol: Document 01/18/19 13:55 AMH (Rec: 01/18/19 14:02 AMH [email or web address]) Out-Patient Physical Therapy Visit Information Visit Information Visit Type Treatment Note Visit Start Time 13:00 Visit Stop Time 13:55 Total Visit Minutes 55 Visit Number 4 PT-OP-B Current Condition Start: 12/31/18 16:47 Freq: Status: Active Protocol: Document 12/31/18 14:30 DLM (Rec: 12/31/18 18:09 DLM [id number]) Current Condition History of Current Condition Onset Date 12/29/18 Current Complaints right sided neck pain History of Current Condition She woke up with severe pain in the right side of her neck. She is not aware of any injury. The day before she was weeding in her garden. One week ago she was helping her children move. Before that she was staying with family sleeping on an air mattress. She has noted stiffness in her neck for a while but it is never this painful. She is also having pain in her neck if she tries to lift or push with her right UE. She saw her physician today. Prior Treatments and Tests none Future Testing and Treatments Planned none Prior Functional Status Baseline Function- ADL's Independent Baseline Function- Mobility Independent Baseline Function- Gait Independent without device, community distances Baseline Function- Recreation/Hobbies She does exercises classes/ routines. She has notes stiffness in her neck that limits how far she can move during exercises. She likes to garden. Current Functional Impairments (Reported) Functional Limitations- ADL's Her had to help her put her bra on today due to the pain. She has increased pain getting clothes out of the closet. She can not push up with right UE. Functional Limitations- Mobility/Gait Her helped her get out of bed today due to the pain. She can not push herself up with right UE to get out of bed. Her gait has not been affected. Functional Limitations- Recreation/ She is unable to garden at Hobbies this time. Personal Factors Other Personal Factors That May Effect Her Spouse is also attending Therapy/Recovery Physical Therapy for neck/back pain. PT-OP-C Subjective Start: 12/31/18 16:47 Freq: Status: Active Protocol: Document 01/18/19 13:55 AMH (Rec: 01/18/19 14:02 AMH [email or web address]) OP-PT Subjective Patient Comments Patient Comments Chhaya reports she did a lot of weeding and is sore today on the right side Patient Reported Progress Improving PT-OP-J Posture/Palpation/Skin Start: 12/31/18 16:47 Freq: Status: Active Protocol: Document 12/31/18 14:30 DLM (Rec: 12/31/18 18:09 DLM [id number]) Posture Evaluation Position Sitting Evaluation View Anterior Head/C-Spine Posture Side Bent Right Forward Head Shoulder Posture (L) Rounded (R) Rounded (R) Elevated Palpation Assessment Location One Palpation Location Cervical Palpation Findings Soft Tissue Tightness Tenderness Trigger Point Palpation Details right cervical tenderness with point tenderness at C5, tightness right UT/rhomboids/ scalenes, tightness right thoracic paraspinals PT-OP-K Range of Motion Start: 12/31/18 16:47 Freq: Status: Active Protocol: Document 01/14/19 09:00 DLM (Rec: 01/14/19 10:19 DLM [id number]) Cervical Spine Range of Motion Cervical Spine Active Percentage Testing Position Sitting Flexion 80 Extension 90 Rotation Left 75 Rotation Right 60 Lateral Flexion Left 20 Lateral Flexion Right 25 ROM Limitations Soft Tissue Tightness Pain Comments right cervical pain with right rotation PT-OP-L Special Tests Start: 12/31/18 16:47 Freq: Status: Active Protocol: Document 12/31/18 14:30 DLM (Rec: 12/31/18 18:10 DLM [id number]) Special Tests Cervical Spine Special Tests Foraminal Compression Test Results negative Traction Test Results increased cervical pain on right PT-OP-M Strength Start: 12/31/18 16:47 Freq: Status: Active Protocol: Document 12/31/18 14:30 DLM (Rec: 12/31/18 18:09 DLM [id number]) Cervical Spine Strength Cervical Spine Manual Muscle Testing Testing Position Sitting Flexion (C1-2) 4- Good- Extension 4- Good- Rotation Left 4 Good Rotation Right 4 Good Lateral Flexion Left (C3) 4- Good- Lateral Flexion Right (C3) 4- Good- Shoulder Strength Shoulder Manual Muscle Testing Right Flexion 5 Normal Extension 5 Normal Abduction (C5) 5 Normal Adduction 5 Normal External Rotation 5 Normal Internal Rotation 5 Normal Left Flexion 5 Normal Extension 5 Normal Abduction (C5) 5 Normal Adduction 5 Normal External Rotation 5 Normal Internal Rotation 5 Normal Elbow/Forearm Strength Elbow and Forearm Manual Muscle Testing Right Flexion (C6) 5 Normal Extension (C7) 5 Normal Left Flexion (C6) 5 Normal Extension (C7) 5 Normal Wrist Strength Wrist Manual Muscle Testing Right Flexion (C7) 5 Normal Extension (C6) 5 Normal Left Flexion (C7) 5 Normal Extension (C6) 5 Normal Hand Pipe Line Inspector/Pinch Strength Hand Dominance Hand Dominance Right PT-OP-Q Treatments Start: 12/31/18 16:47 Freq: Status: Active Protocol: Document 01/18/19 13:55 AMH (Rec: 01/18/19 14:02 [facility] [email or web address]) Cardio Equipment Upper Body Ergometer (UBE) Duration (Minutes) 6 Other 3' forward and 3' backward Therapeutic Exercises Supine Exercises 1 Supine Exercise Name foam roll postural stretch Equipment Used 1/2 foam roll Comments UE's at sides and over-head Sitting Exercises 4 Sitting Exercise Name UT stretch holding edge of mat Side bilateral Reps/Minutes 20 sec hold x 3 reps each side 3 Sitting Exercise Name scapular pinches Side bilateral Reps/Minutes 10 reps 2 Sitting Exercise Name cervical AROM Side bilateral Reps/Minutes 5 each motion Comments pain only with right rotation today 1 Sitting Exercise Name posterior shoulder rolls Side bilateral Reps/Minutes 10 Manual Therapy Treatment Soft Tissue Mobilization 1 Body Location cervical area and UT's Mobilization Type Cross-Friction Sustained Pressure Trigger Point Release Intensity/Depth Moderate Body Position Supine Joint Mobilizations 2 Joint seated upper thoracic PA mobs PT-OP-R Modalities Start: 12/31/18 16:47 Freq: Status: Active Protocol: Document 01/18/19 14:02 AMH (Rec: 01/18/19 14:04 [facility] [email or web address]) Ultrasound Therapy Treatment Right Neck Patient Position Sitting Coupling Medium Ultrasound Gel Applicator Size (cm2) 5 Mode Setting Continuous Duty Cycle 100% Intensity Setting (w/cm2) 1.5 PT-OP-T Assessment and Plan Start: 12/31/18 16:47 Freq: Status: Active Protocol: Document 01/18/19 13:55 AMH (Rec: 01/18/19 14:02 [facility] [email or web address]) Physical Therapy Assessment Assessment Summary Assessment worked on postural modifications today and talked about avoiding upper cervical extension when seated at the computer as she is sore after 30 min of computer work. Physical Therapy Plan Frequency and Duration Frequency of Treatment 2x/Week Duration of Treatment 6 weeks Plan of Care Start Date 12/31/18 Plan of Care End Date 03/02/19 Therapeutic Interventions Therapeutic Interventions Home Exercise Program Joint Mobilizations Manual Therapy Patient/Caregiver Education Self-Care/Home Management Soft Tissue Mobilization Taping Therapeutic Activities Therapeutic Exercises Modalities Cold Pack/Ice Massage Electric Stimulation Hot Packs Ultrasound Next Visit Focus/Plan Next Note Type Treatment Note Next Visit Plan slowly advance cervical strengthening and postural ex
--- NOTE | 2019-01-25 15:31 | PT.OTN ---
Current Diagnoses Pain in right shoulder (01/25/19) Cervicalgia (01/25/19) Physical Therapy Treatment Note PT-OP-A Visit Information Start: 12/31/18 16:47 Freq: Status: Active Protocol: Document 01/25/19 15:19 SA (Rec: 01/25/19 15:31 SA [email or web address]) Out-Patient Physical Therapy Visit Information Visit Information Visit Type Treatment Note Visit Start Time 12:15 Visit Stop Time 13:00 Total Visit Minutes 45 Visit Number 5 Number of DIRECTOR STYLE Visits 1 PT-OP-B Current Condition Start: 12/31/18 16:47 Freq: Status: Active Protocol: Document 12/31/18 14:30 DLM (Rec: 12/31/18 18:09 DLM [id number]) Current Condition History of Current Condition Onset Date 12/29/18 Current Complaints right sided neck pain History of Current Condition She woke up with severe pain in the right side of her neck. She is not aware of any injury. The day before she was weeding in her garden. One week ago she was helping her children move. Before that she was staying with family sleeping on an air mattress. She has noted stiffness in her neck for a while but it is never this painful. She is also having pain in her neck if she tries to lift or push with her right UE. She saw her physician today. Prior Treatments and Tests none Future Testing and Treatments Planned none Prior Functional Status Baseline Function- ADL's Independent Baseline Function- Mobility Independent Baseline Function- Gait Independent without device, community distances Baseline Function- Recreation/Hobbies She does exercises classes/ routines. She has notes stiffness in her neck that limits how far she can move during exercises. She likes to garden. Current Functional Impairments (Reported) Functional Limitations- ADL's Her had to help her put her bra on today due to the pain. She has increased pain getting clothes out of the closet. She can not push up with right UE. Functional Limitations- Mobility/Gait Her helped her get out of bed today due to the pain. She can not push herself up with right UE to get out of bed. Her gait has not been affected. Functional Limitations- Recreation/ She is unable to garden at Hobbies this time. Personal Factors Other Personal Factors That May Effect Her Spouse is also attending Therapy/Recovery Physical Therapy for neck/back pain. PT-OP-C Subjective Start: 12/31/18 16:47 Freq: Status: Active Protocol: Document 01/25/19 15:19 SA (Rec: 01/25/19 15:31 SA [email or web address]) OP-PT Subjective Patient Comments Patient Comments Pt reports improvement in neck pain overall but cervical rotation to R and L trigger symptoms. PT-OP-J Posture/Palpation/Skin Start: 12/31/18 16:47 Freq: Status: Active Protocol: Document 12/31/18 14:30 DLM (Rec: 12/31/18 18:09 DLM [id number]) Posture Evaluation Position Sitting Evaluation View Anterior Head/C-Spine Posture Side Bent Right Forward Head Shoulder Posture (L) Rounded (R) Rounded (R) Elevated Palpation Assessment Location One Palpation Location Cervical Palpation Findings Soft Tissue Tightness Tenderness Trigger Point Palpation Details right cervical tenderness with point tenderness at C5, tightness right UT/rhomboids/ scalenes, tightness right thoracic paraspinals PT-OP-K Range of Motion Start: 12/31/18 16:47 Freq: Status: Active Protocol: Document 01/14/19 09:00 DLM (Rec: 01/14/19 10:19 DLM [id number]) Cervical Spine Range of Motion Cervical Spine Active Percentage Testing Position Sitting Flexion 80 Extension 90 Rotation Left 75 Rotation Right 60 Lateral Flexion Left 20 Lateral Flexion Right 25 ROM Limitations Soft Tissue Tightness Pain Comments right cervical pain with right rotation PT-OP-L Special Tests Start: 12/31/18 16:47 Freq: Status: Active Protocol: Document 12/31/18 14:30 DLM (Rec: 12/31/18 18:10 DLM [id number]) Special Tests Cervical Spine Special Tests Foraminal Compression Test Results negative Traction Test Results increased cervical pain on right PT-OP-M Strength Start: 12/31/18 16:47 Freq: Status: Active Protocol: Document 12/31/18 14:30 DLM (Rec: 12/31/18 18:09 DLM [id number]) Cervical Spine Strength Cervical Spine Manual Muscle Testing Testing Position Sitting Flexion (C1-2) 4- Good- Extension 4- Good- Rotation Left 4 Good Rotation Right 4 Good Lateral Flexion Left (C3) 4- Good- Lateral Flexion Right (C3) 4- Good- Shoulder Strength Shoulder Manual Muscle Testing Right Flexion 5 Normal Extension 5 Normal Abduction (C5) 5 Normal Adduction 5 Normal External Rotation 5 Normal Internal Rotation 5 Normal Left Flexion 5 Normal Extension 5 Normal Abduction (C5) 5 Normal Adduction 5 Normal External Rotation 5 Normal Internal Rotation 5 Normal Elbow/Forearm Strength Elbow and Forearm Manual Muscle Testing Right Flexion (C6) 5 Normal Extension (C7) 5 Normal Left Flexion (C6) 5 Normal Extension (C7) 5 Normal Wrist Strength Wrist Manual Muscle Testing Right Flexion (C7) 5 Normal Extension (C6) 5 Normal Left Flexion (C7) 5 Normal Extension (C6) 5 Normal Hand Pigment Presser/Pinch Strength Hand Dominance Hand Dominance Right PT-OP-Q Treatments Start: 12/31/18 16:47 Freq: Status: Active Protocol: Document 01/25/19 15:19 SA (Rec: 01/25/19 15:31 SA [email or web address]) Cardio Equipment Upper Body Ergometer (UBE) Duration (Minutes) 6 Other 3' forward and 3' backward Therapeutic Exercises Supine Exercises 1 Supine Exercise Name foam roll postural stretch Equipment Used 1/2 foam roll Comments UE's at sides and over-head Sitting Exercises 4 Sitting Exercise Name UT stretch holding edge of mat Side bilateral Reps/Minutes 20 sec hold x 3 reps each side 3 Sitting Exercise Name scapular pinches Side bilateral Reps/Minutes 15 2 Sitting Exercise Name cervical AROM Side bilateral Reps/Minutes 5 each motion Comments pain only with right rotation today 1 Sitting Exercise Name posterior shoulder rolls Side bilateral Reps/Minutes 15 Standing Exercises Postural Wall stretch Side bilateral Equipment Used wall Reps/Minutes 30 x 3 Comments tactile cues for positioning Manual Therapy Treatment Soft Tissue Mobilization 1 Body Location cervical area and UT's Mobilization Type Cross-Friction Sustained Pressure Trigger Point Release Intensity/Depth Moderate Body Position Supine Joint Mobilizations 1 Joint cervical spine Direction multi Grade II Body Position Supine PT-OP-R Modalities Start: 12/31/18 16:47 Freq: Status: Active Protocol: Document 01/25/19 15:19 SA (Rec: 01/25/19 15:31 SA [email or web address]) Ultrasound Therapy Treatment Right Neck Treatment Duration (minutes) 8 Patient Position Sitting Coupling Medium Ultrasound Gel Applicator Size (cm2) 5 Duty Cycle 100% Intensity Setting (w/cm2) 1.5 PT-OP-T Assessment and Plan Start: 12/31/18 16:47 Freq: Status: Active Protocol: Document 01/25/19 15:19 SA (Rec: 01/25/19 15:31 [email or web address]) Physical Therapy Assessment Assessment Summary Assessment Pt tolerated ther ex and manual therapy well, plans to do yard work this afternoon. Education for form/position and avoiding forward bent position during yard work, taking breaks and use of a stool to sit on. Physical Therapy Plan Next Visit Focus/Plan Next Note Type Treatment Note Next Visit Plan slowly advance cervical strengthening and postural ex
--- NOTE | 2019-01-28 12:57 | PT.OTN ---
Current Diagnoses Pain in right shoulder (01/28/19) Cervicalgia (01/28/19) Physical Therapy Treatment Note PT-OP-A Visit Information Start: 12/31/18 16:47 Freq: Status: Active Protocol: Document 01/28/19 11:15 AMB (Rec: 01/28/19 12:56 AMB [email or web address]) Out-Patient Physical Therapy Visit Information Visit Information Visit Type Treatment Note Visit Start Time 11:15 Visit Stop Time 12:00 Total Visit Minutes 45 Visit Number 6 Number of HOT BOX CHECKER Visits 0 PT-OP-B Current Condition Start: 12/31/18 16:47 Freq: Status: Active Protocol: Document 12/31/18 14:30 DLM (Rec: 12/31/18 18:09 DLM [id number]) Current Condition History of Current Condition Onset Date 12/29/18 Current Complaints right sided neck pain History of Current Condition She woke up with severe pain in the right side of her neck. She is not aware of any injury. The day before she was weeding in her garden. One week ago she was helping her children move. Before that she was staying with family sleeping on an air mattress. She has noted stiffness in her neck for a while but it is never this painful. She is also having pain in her neck if she tries to lift or push with her right UE. She saw her physician today. Prior Treatments and Tests none Future Testing and Treatments Planned none Prior Functional Status Baseline Function- ADL's Independent Baseline Function- Mobility Independent Baseline Function- Gait Independent without device, community distances Baseline Function- Recreation/Hobbies She does exercises classes/ routines. She has notes stiffness in her neck that limits how far she can move during exercises. She likes to garden. Current Functional Impairments (Reported) Functional Limitations- ADL's Her had to help her put her bra on today due to the pain. She has increased pain getting clothes out of the closet. She can not push up with right UE. Functional Limitations- Mobility/Gait Her helped her get out of bed today due to the pain. She can not push herself up with right UE to get out of bed. Her gait has not been affected. Functional Limitations- Recreation/ She is unable to garden at Hobbies this time. Personal Factors Other Personal Factors That May Effect Her Spouse is also attending Therapy/Recovery Physical Therapy for neck/back pain. PT-OP-C Subjective Start: 12/31/18 16:47 Freq: Status: Active Protocol: Document 01/28/19 11:15 AMB (Rec: 01/28/19 12:56 AMB [email or web address]) OP-PT Subjective Patient Comments Patient Comments Pt continues to report improvement with symptoms, notices it the most when looking right while driving. PT-OP-J Posture/Palpation/Skin Start: 12/31/18 16:47 Freq: Status: Active Protocol: Document 12/31/18 14:30 DLM (Rec: 12/31/18 18:09 DLM [id number]) Posture Evaluation Position Sitting Evaluation View Anterior Head/C-Spine Posture Side Bent Right Forward Head Shoulder Posture (L) Rounded (R) Rounded (R) Elevated Palpation Assessment Location One Palpation Location Cervical Palpation Findings Soft Tissue Tightness Tenderness Trigger Point Palpation Details right cervical tenderness with point tenderness at C5, tightness right UT/rhomboids/ scalenes, tightness right thoracic paraspinals PT-OP-K Range of Motion Start: 12/31/18 16:47 Freq: Status: Active Protocol: Document 01/14/19 09:00 DLM (Rec: 01/14/19 10:19 DLM [id number]) Cervical Spine Range of Motion Cervical Spine Active Percentage Testing Position Sitting Flexion 80 Extension 90 Rotation Left 75 Rotation Right 60 Lateral Flexion Left 20 Lateral Flexion Right 25 ROM Limitations Soft Tissue Tightness Pain Comments right cervical pain with right rotation PT-OP-L Special Tests Start: 12/31/18 16:47 Freq: Status: Active Protocol: Document 12/31/18 14:30 DLM (Rec: 12/31/18 18:10 DLM [id number]) Special Tests Cervical Spine Special Tests Foraminal Compression Test Results negative Traction Test Results increased cervical pain on right PT-OP-M Strength Start: 12/31/18 16:47 Freq: Status: Active Protocol: Document 12/31/18 14:30 DLM (Rec: 12/31/18 18:09 DLM [id number]) Cervical Spine Strength Cervical Spine Manual Muscle Testing Testing Position Sitting Flexion (C1-2) 4- Good- Extension 4- Good- Rotation Left 4 Good Rotation Right 4 Good Lateral Flexion Left (C3) 4- Good- Lateral Flexion Right (C3) 4- Good- Shoulder Strength Shoulder Manual Muscle Testing Right Flexion 5 Normal Extension 5 Normal Abduction (C5) 5 Normal Adduction 5 Normal External Rotation 5 Normal Internal Rotation 5 Normal Left Flexion 5 Normal Extension 5 Normal Abduction (C5) 5 Normal Adduction 5 Normal External Rotation 5 Normal Internal Rotation 5 Normal Elbow/Forearm Strength Elbow and Forearm Manual Muscle Testing Right Flexion (C6) 5 Normal Extension (C7) 5 Normal Left Flexion (C6) 5 Normal Extension (C7) 5 Normal Wrist Strength Wrist Manual Muscle Testing Right Flexion (C7) 5 Normal Extension (C6) 5 Normal Left Flexion (C7) 5 Normal Extension (C6) 5 Normal Hand Director Child Abuse Therapy/Pinch Strength Hand Dominance Hand Dominance Right PT-OP-Q Treatments Start: 12/31/18 16:47 Freq: Status: Active Protocol: Document 01/28/19 11:15 AMB (Rec: 01/28/19 12:56 AMB [email or web address]) Therapeutic Exercises Sitting Exercises 4 Sitting Exercise Name UT stretch holding edge of mat Side bilateral Reps/Minutes 20 sec hold x 3 reps each side 3 Sitting Exercise Name scapular pinches Side bilateral Reps/Minutes 15 2 Sitting Exercise Name cervical AROM Side bilateral Reps/Minutes 5 each motion 1 Sitting Exercise Name posterior shoulder rolls Side bilateral Reps/Minutes 15 Standing Exercises 1 Standing Exercise Name low row Resistance #1 t band Reps/Minutes 2x10 Comments vc to avoid shoulder elevation Manual Therapy Treatment Soft Tissue Mobilization 1 Body Location cervical area and UT's Mobilization Type Cross-Friction Sustained Pressure Trigger Point Release Intensity/Depth Moderate Body Position Supine Joint Mobilizations 1 Joint cervical spine Direction multi Grade II Body Position Supine Manual Traction Cervical Comments tolerated well today Manual Techniques 1 Type contract relax Comments for R cervical rotation PT-OP-R Modalities Start: 12/31/18 16:47 Freq: Status: Active Protocol: Document 01/28/19 11:15 AMB (Rec: 01/28/19 12:57 AMB [email or web address]) Hot Pack/Cold Pack Treatment Hot Pack Location cervical Patient Position Hooklying Treatment Duration (minutes) 12 Patient Tolerance Good PT-OP-T Assessment and Plan Start: 12/31/18 16:47 Freq: Status: Active Protocol: Document 01/28/19 11:15 AMB (Rec: 01/28/19 12:56 AMB [email or web address]) Physical Therapy Assessment Assessment Summary Assessment Pt encouraged to continue stretching neck and to modify yardwork so that she is only out there for 1 hour or less. Physical Therapy Plan Next Visit Focus/Plan Next Note Type Treatment Note Next Visit Plan slowly advance cervical strengthening and postural ex
--- NOTE | 2019-02-01 15:49 | PT.OTN ---
Current Diagnoses Pain in right shoulder (02/01/19) Cervicalgia (02/01/19) Physical Therapy Treatment Note PT-OP-A Visit Information Start: 12/31/18 16:47 Freq: Status: Active Protocol: Document 02/01/19 15:41 SA (Rec: 02/01/19 15:49 SA [email or web address]) Out-Patient Physical Therapy Visit Information Visit Information Visit Type Treatment Note Visit Start Time 13:45 Visit Stop Time 14:33 Total Visit Minutes 48 Visit Number 7 Number of HYPERION ADMINISTRATOR Visits 1 PT-OP-B Current Condition Start: 12/31/18 16:47 Freq: Status: Active Protocol: Document 12/31/18 14:30 DLM (Rec: 12/31/18 18:09 DLM [id number]) Current Condition History of Current Condition Onset Date 12/29/18 Current Complaints right sided neck pain History of Current Condition She woke up with severe pain in the right side of her neck. She is not aware of any injury. The day before she was weeding in her garden. One week ago she was helping her children move. Before that she was staying with family sleeping on an air mattress. She has noted stiffness in her neck for a while but it is never this painful. She is also having pain in her neck if she tries to lift or push with her right UE. She saw her physician today. Prior Treatments and Tests none Future Testing and Treatments Planned none Prior Functional Status Baseline Function- ADL's Independent Baseline Function- Mobility Independent Baseline Function- Gait Independent without device, community distances Baseline Function- Recreation/Hobbies She does exercises classes/ routines. She has notes stiffness in her neck that limits how far she can move during exercises. She likes to garden. Current Functional Impairments (Reported) Functional Limitations- ADL's Her had to help her put her bra on today due to the pain. She has increased pain getting clothes out of the closet. She can not push up with right UE. Functional Limitations- Mobility/Gait Her helped her get out of bed today due to the pain. She can not push herself up with right UE to get out of bed. Her gait has not been affected. Functional Limitations- Recreation/ She is unable to garden at Hobbies this time. Personal Factors Other Personal Factors That May Effect Her Spouse is also attending Therapy/Recovery Physical Therapy for neck/back pain. PT-OP-C Subjective Start: 12/31/18 16:47 Freq: Status: Active Protocol: Document 02/01/19 15:41 SA (Rec: 02/01/19 15:49 SA [email or web address]) OP-PT Subjective Patient Comments Patient Comments Pt reports decreased symproms with increased daily activity, admits she is not always consistent with HEP. PT-OP-J Posture/Palpation/Skin Start: 12/31/18 16:47 Freq: Status: Active Protocol: Document 12/31/18 14:30 DLM (Rec: 12/31/18 18:09 DLM [id number]) Posture Evaluation Position Sitting Evaluation View Anterior Head/C-Spine Posture Side Bent Right Forward Head Shoulder Posture (L) Rounded (R) Rounded (R) Elevated Palpation Assessment Location One Palpation Location Cervical Palpation Findings Soft Tissue Tightness Tenderness Trigger Point Palpation Details right cervical tenderness with point tenderness at C5, tightness right UT/rhomboids/ scalenes, tightness right thoracic paraspinals PT-OP-K Range of Motion Start: 12/31/18 16:47 Freq: Status: Active Protocol: Document 01/14/19 09:00 DLM (Rec: 01/14/19 10:19 DLM [id number]) Cervical Spine Range of Motion Cervical Spine Active Percentage Testing Position Sitting Flexion 80 Extension 90 Rotation Left 75 Rotation Right 60 Lateral Flexion Left 20 Lateral Flexion Right 25 ROM Limitations Soft Tissue Tightness Pain Comments right cervical pain with right rotation PT-OP-L Special Tests Start: 12/31/18 16:47 Freq: Status: Active Protocol: Document 12/31/18 14:30 DLM (Rec: 12/31/18 18:10 DLM [id number]) Special Tests Cervical Spine Special Tests Foraminal Compression Test Results negative Traction Test Results increased cervical pain on right PT-OP-M Strength Start: 12/31/18 16:47 Freq: Status: Active Protocol: Document 12/31/18 14:30 DLM (Rec: 12/31/18 18:09 DLM [id number]) Cervical Spine Strength Cervical Spine Manual Muscle Testing Testing Position Sitting Flexion (C1-2) 4- Good- Extension 4- Good- Rotation Left 4 Good Rotation Right 4 Good Lateral Flexion Left (C3) 4- Good- Lateral Flexion Right (C3) 4- Good- Shoulder Strength Shoulder Manual Muscle Testing Right Flexion 5 Normal Extension 5 Normal Abduction (C5) 5 Normal Adduction 5 Normal External Rotation 5 Normal Internal Rotation 5 Normal Left Flexion 5 Normal Extension 5 Normal Abduction (C5) 5 Normal Adduction 5 Normal External Rotation 5 Normal Internal Rotation 5 Normal Elbow/Forearm Strength Elbow and Forearm Manual Muscle Testing Right Flexion (C6) 5 Normal Extension (C7) 5 Normal Left Flexion (C6) 5 Normal Extension (C7) 5 Normal Wrist Strength Wrist Manual Muscle Testing Right Flexion (C7) 5 Normal Extension (C6) 5 Normal Left Flexion (C7) 5 Normal Extension (C6) 5 Normal Hand Chalk Machine Operator/Pinch Strength Hand Dominance Hand Dominance Right PT-OP-Q Treatments Start: 12/31/18 16:47 Freq: Status: Active Protocol: Document 02/01/19 15:41 SA (Rec: 02/01/19 15:49 SA [email or web address]) Cardio Equipment Upper Body Ergometer (UBE) Duration (Minutes) 6 Other 3' forward and 3' backward Therapeutic Exercises Sitting Exercises 4 Sitting Exercise Name UT stretch holding edge of mat Side bilateral Reps/Minutes 20 sec hold x 3 reps each side 3 Sitting Exercise Name scapular pinches Side bilateral Reps/Minutes 15 2 Sitting Exercise Name cervical AROM Side bilateral Reps/Minutes 5 each motion 1 Sitting Exercise Name posterior shoulder rolls Side bilateral Reps/Minutes 15 Standing Exercises 1 Standing Exercise Name low row Resistance #1 t band Reps/Minutes 2x10 Comments vc to avoid shoulder elevation Postural Wall stretch Side bilateral Equipment Used wall Reps/Minutes 30 x 3 Comments tactile cues for positioning Manual Therapy Treatment Soft Tissue Mobilization 1 Mobilization Type Cross-Friction Sustained Pressure Trigger Point Release Intensity/Depth Moderate Body Position Supine Joint Mobilizations 1 Joint cervical spine Direction multi Grade II Body Position Supine Manual Techniques 1 Type contract relax Comments for R cervical rotation PT-OP-R Modalities Start: 12/31/18 16:47 Freq: Status: Active Protocol: Document 02/01/19 15:41 SA (Rec: 02/01/19 15:49 SA [email or web address]) Hot Pack/Cold Pack Treatment Hot Pack Location cervical Patient Position Hooklying Treatment Duration (minutes) 12 Patient Tolerance Good Comments End of session Ultrasound Therapy Treatment Right Neck Treatment Duration (minutes) 8 Patient Position Sitting Coupling Medium Ultrasound Gel Applicator Size (cm2) 5 Duty Cycle 100% Intensity Setting (w/cm2) 1.5 PT-OP-T Assessment and Plan Start: 12/31/18 16:47 Freq: Status: Active Protocol: Document 02/01/19 15:41 SA (Rec: 02/01/19 15:49 SA [email or web address]) Physical Therapy Assessment Assessment Summary Assessment Pt progressing well, continued R UT/scalene tightness. Tolerating manual and exercise well. Physical Therapy Plan Next Visit Focus/Plan Next Note Type Treatment Note Next Visit Plan Re-visit postural correction with daily activity, progress cervical strengthening.
--- NOTE | 2019-02-04 15:46 | PT.OTN ---
Current Diagnoses Pain in right shoulder (02/04/19) Cervicalgia (02/04/19) Physical Therapy Treatment Note PT-OP-A Visit Information Start: 12/31/18 16:47 Freq: Status: Active Protocol: Document 02/04/19 15:38 SA (Rec: 02/04/19 15:46 SA [email or web address]) Out-Patient Physical Therapy Visit Information Visit Information Visit Type Treatment Note Visit Start Time 13:45 Visit Stop Time 14:30 Total Visit Minutes 45 Visit Number 8 Number of LAUNDRY MACHINE TENDER Visits 2 PT-OP-B Current Condition Start: 12/31/18 16:47 Freq: Status: Active Protocol: Document 12/31/18 14:30 DLM (Rec: 12/31/18 18:09 DLM [id number]) Current Condition History of Current Condition Onset Date 12/29/18 Current Complaints right sided neck pain History of Current Condition She woke up with severe pain in the right side of her neck. She is not aware of any injury. The day before she was weeding in her garden. One week ago she was helping her children move. Before that she was staying with family sleeping on an air mattress. She has noted stiffness in her neck for a while but it is never this painful. She is also having pain in her neck if she tries to lift or push with her right UE. She saw her physician today. Prior Treatments and Tests none Future Testing and Treatments Planned none Prior Functional Status Baseline Function- ADL's Independent Baseline Function- Mobility Independent Baseline Function- Gait Independent without device, community distances Baseline Function- Recreation/Hobbies She does exercises classes/ routines. She has notes stiffness in her neck that limits how far she can move during exercises. She likes to garden. Current Functional Impairments (Reported) Functional Limitations- ADL's Her had to help her put her bra on today due to the pain. She has increased pain getting clothes out of the closet. She can not push up with right UE. Functional Limitations- Mobility/Gait Her helped her get out of bed today due to the pain. She can not push herself up with right UE to get out of bed. Her gait has not been affected. Functional Limitations- Recreation/ She is unable to garden at Hobbies this time. Personal Factors Other Personal Factors That May Effect Her Spouse is also attending Therapy/Recovery Physical Therapy for neck/back pain. PT-OP-C Subjective Start: 12/31/18 16:47 Freq: Status: Active Protocol: Document 02/04/19 15:38 SA (Rec: 02/04/19 15:46 SA [email or web address]) OP-PT Subjective Patient Comments Patient Comments Pt feeling gradual improvements with mobility and pain. PT-OP-J Posture/Palpation/Skin Start: 12/31/18 16:47 Freq: Status: Active Protocol: Document 12/31/18 14:30 DLM (Rec: 12/31/18 18:09 DLM [id number]) Posture Evaluation Position Sitting Evaluation View Anterior Head/C-Spine Posture Side Bent Right Forward Head Shoulder Posture (L) Rounded (R) Rounded (R) Elevated Palpation Assessment Location One Palpation Location Cervical Palpation Findings Soft Tissue Tightness Tenderness Trigger Point Palpation Details right cervical tenderness with point tenderness at C5, tightness right UT/rhomboids/ scalenes, tightness right thoracic paraspinals PT-OP-K Range of Motion Start: 12/31/18 16:47 Freq: Status: Active Protocol: Document 01/14/19 09:00 DLM (Rec: 01/14/19 10:19 DLM [id number]) Cervical Spine Range of Motion Cervical Spine Active Percentage Testing Position Sitting Flexion 80 Extension 90 Rotation Left 75 Rotation Right 60 Lateral Flexion Left 20 Lateral Flexion Right 25 ROM Limitations Soft Tissue Tightness Pain Comments right cervical pain with right rotation PT-OP-L Special Tests Start: 12/31/18 16:47 Freq: Status: Active Protocol: Document 12/31/18 14:30 DLM (Rec: 12/31/18 18:10 DLM [id number]) Special Tests Cervical Spine Special Tests Foraminal Compression Test Results negative Traction Test Results increased cervical pain on right PT-OP-M Strength Start: 12/31/18 16:47 Freq: Status: Active Protocol: Document 12/31/18 14:30 DLM (Rec: 12/31/18 18:09 DLM [id number]) Cervical Spine Strength Cervical Spine Manual Muscle Testing Testing Position Sitting Flexion (C1-2) 4- Good- Extension 4- Good- Rotation Left 4 Good Rotation Right 4 Good Lateral Flexion Left (C3) 4- Good- Lateral Flexion Right (C3) 4- Good- Shoulder Strength Shoulder Manual Muscle Testing Right Flexion 5 Normal Extension 5 Normal Abduction (C5) 5 Normal Adduction 5 Normal External Rotation 5 Normal Internal Rotation 5 Normal Left Flexion 5 Normal Extension 5 Normal Abduction (C5) 5 Normal Adduction 5 Normal External Rotation 5 Normal Internal Rotation 5 Normal Elbow/Forearm Strength Elbow and Forearm Manual Muscle Testing Right Flexion (C6) 5 Normal Extension (C7) 5 Normal Left Flexion (C6) 5 Normal Extension (C7) 5 Normal Wrist Strength Wrist Manual Muscle Testing Right Flexion (C7) 5 Normal Extension (C6) 5 Normal Left Flexion (C7) 5 Normal Extension (C6) 5 Normal Hand Drafting Instructor/Pinch Strength Hand Dominance Hand Dominance Right PT-OP-Q Treatments Start: 12/31/18 16:47 Freq: Status: Active Protocol: Document 02/04/19 15:38 SA (Rec: 02/04/19 15:46 SA [email or web address]) Cardio Equipment Upper Body Ergometer (UBE) Duration (Minutes) 6 Other 3' forward and 3' backward Therapeutic Exercises Supine Exercises 1 Supine Exercise Name foam roll postural stretch Equipment Used 1/2 foam roll Reps/Minutes 3 min Comments UE's at sides and over-head Sitting Exercises 4 Sitting Exercise Name UT stretch holding edge of mat Side bilateral Reps/Minutes 20 sec hold x 3 reps each side 2 Sitting Exercise Name cervical AROM Side bilateral Reps/Minutes 10 each motion 1 Sitting Exercise Name posterior shoulder rolls Side bilateral Reps/Minutes 15 Standing Exercises 1 Standing Exercise Name low row Resistance # 2 band Reps/Minutes 2x10 Comments vc to avoid shoulder elevation Postural Wall stretch Side bilateral Equipment Used wall Reps/Minutes 30 x 3 Comments tactile cues for positioning Manual Therapy Treatment Soft Tissue Mobilization 1 Body Location cervical area and UT's Mobilization Type Cross-Friction Sustained Pressure Trigger Point Release Intensity/Depth Moderate Body Position Supine Joint Mobilizations 1 Joint cervical spine Direction multi Grade II Body Position Supine Manual Traction Cervical Body Position Supine Comments tolerated well today PT-OP-R Modalities Start: 12/31/18 16:47 Freq: Status: Active Protocol: Document 02/04/19 15:38 SA (Rec: 02/04/19 15:46 SA [email or web address]) Ultrasound Therapy Treatment Right Neck Treatment Duration (minutes) 8 Patient Position Sitting Coupling Medium Ultrasound Gel Applicator Size (cm2) 5 Duty Cycle 100% Intensity Setting (w/cm2) 1.5 PT-OP-T Assessment and Plan Start: 12/31/18 16:47 Freq: Status: Active Protocol: Document 02/04/19 15:38 SA (Rec: 02/04/19 15:46 SA [email or web address]) Physical Therapy Assessment Assessment Summary Assessment Pt tolerated supine thoracic EXT stretch well, plans to cont at home. Responding well to manual and exercise. Physical Therapy Plan Next Visit Focus/Plan Next Note Type Treatment Note Next Visit Plan Re-visit postural correction with daily activity, progress cervical strengthening.
--- NOTE | 2019-02-15 12:00 | PT.OTN ---
Current Diagnoses Pain in right shoulder (02/15/19) Cervicalgia (02/15/19) Physical Therapy Treatment Note PT-OP-A Visit Information Start: 12/31/18 16:47 Freq: Status: Active Protocol: Document 02/15/19 09:45 AMB (Rec: 02/15/19 09:56 AMB [id number]) Out-Patient Physical Therapy Visit Information Visit Information Visit Type Treatment Note Visit Start Time 09:45 Visit Stop Time 10:30 Total Visit Minutes 45 Visit Number 9 Number of STITCH BONDING MACHINE TENDER Visits 0 PT-OP-B Current Condition Start: 12/31/18 16:47 Freq: Status: Active Protocol: Document 12/31/18 14:30 DLM (Rec: 12/31/18 18:09 DLM [id number]) Current Condition History of Current Condition Onset Date 12/29/18 Current Complaints right sided neck pain History of Current Condition She woke up with severe pain in the right side of her neck. She is not aware of any injury. The day before she was weeding in her garden. One week ago she was helping her children move. Before that she was staying with family sleeping on an air mattress. She has noted stiffness in her neck for a while but it is never this painful. She is also having pain in her neck if she tries to lift or push with her right UE. She saw her physician today. Prior Treatments and Tests none Future Testing and Treatments Planned none Prior Functional Status Baseline Function- ADL's Independent Baseline Function- Mobility Independent Baseline Function- Gait Independent without device, community distances Baseline Function- Recreation/Hobbies She does exercises classes/ routines. She has notes stiffness in her neck that limits how far she can move during exercises. She likes to garden. Current Functional Impairments (Reported) Functional Limitations- ADL's Her had to help her put her bra on today due to the pain. She has increased pain getting clothes out of the closet. She can not push up with right UE. Functional Limitations- Mobility/Gait Her helped her get out of bed today due to the pain. She can not push herself up with right UE to get out of bed. Her gait has not been affected. Functional Limitations- Recreation/ She is unable to garden at Hobbies this time. Personal Factors Other Personal Factors That May Effect Her Spouse is also attending Therapy/Recovery Physical Therapy for neck/back pain. PT-OP-C Subjective Start: 12/31/18 16:47 Freq: Status: Active Protocol: Document 02/15/19 09:45 AMB (Rec: 02/15/19 09:56 AMB [id number]) OP-PT Subjective Patient Comments Patient Comments Pt fell on February 02 PT-OP-J Posture/Palpation/Skin Start: 12/31/18 16:47 Freq: Status: Active Protocol: Document 12/31/18 14:30 DLM (Rec: 12/31/18 18:09 DLM [id number]) Posture Evaluation Position Sitting Evaluation View Anterior Head/C-Spine Posture Side Bent Right Forward Head Shoulder Posture (L) Rounded (R) Rounded (R) Elevated Palpation Assessment Location One Palpation Location Cervical Palpation Findings Soft Tissue Tightness Tenderness Trigger Point Palpation Details right cervical tenderness with point tenderness at C5, tightness right UT/rhomboids/ scalenes, tightness right thoracic paraspinals PT-OP-K Range of Motion Start: 12/31/18 16:47 Freq: Status: Active Protocol: Document 01/14/19 09:00 DLM (Rec: 01/14/19 10:19 DLM [id number]) Cervical Spine Range of Motion Cervical Spine Active Percentage Testing Position Sitting Flexion 80 Extension 90 Rotation Left 75 Rotation Right 60 Lateral Flexion Left 20 Lateral Flexion Right 25 ROM Limitations Soft Tissue Tightness Pain Comments right cervical pain with right rotation PT-OP-L Special Tests Start: 12/31/18 16:47 Freq: Status: Active Protocol: Document 12/31/18 14:30 DLM (Rec: 12/31/18 18:10 DLM [id number]) Special Tests Cervical Spine Special Tests Foraminal Compression Test Results negative Traction Test Results increased cervical pain on right PT-OP-M Strength Start: 12/31/18 16:47 Freq: Status: Active Protocol: Document 12/31/18 14:30 DLM (Rec: 12/31/18 18:09 DLM [id number]) Cervical Spine Strength Cervical Spine Manual Muscle Testing Testing Position Sitting Flexion (C1-2) 4- Good- Extension 4- Good- Rotation Left 4 Good Rotation Right 4 Good Lateral Flexion Left (C3) 4- Good- Lateral Flexion Right (C3) 4- Good- Shoulder Strength Shoulder Manual Muscle Testing Right Flexion 5 Normal Extension 5 Normal Abduction (C5) 5 Normal Adduction 5 Normal External Rotation 5 Normal Internal Rotation 5 Normal Left Flexion 5 Normal Extension 5 Normal Abduction (C5) 5 Normal Adduction 5 Normal External Rotation 5 Normal Internal Rotation 5 Normal Elbow/Forearm Strength Elbow and Forearm Manual Muscle Testing Right Flexion (C6) 5 Normal Extension (C7) 5 Normal Left Flexion (C6) 5 Normal Extension (C7) 5 Normal Wrist Strength Wrist Manual Muscle Testing Right Flexion (C7) 5 Normal Extension (C6) 5 Normal Left Flexion (C7) 5 Normal Extension (C6) 5 Normal Hand Tentering Machine Feeder/Pinch Strength Hand Dominance Hand Dominance Right PT-OP-Q Treatments Start: 12/31/18 16:47 Freq: Status: Active Protocol: Document 02/15/19 09:45 AMB (Rec: 02/15/19 11:59 AMB [email or web address]) Therapeutic Exercises Sitting Exercises 4 Sitting Exercise Name UT stretch holding edge of mat Side bilateral Reps/Minutes 20 sec hold x 3 reps each side 1 Sitting Exercise Name posterior shoulder rolls Side bilateral Reps/Minutes 15 Standing Exercises 1 Standing Exercise Name low row Resistance # 2 band Reps/Minutes 2x10 Comments vc to avoid shoulder elevation Postural Wall stretch Side bilateral Equipment Used wall Reps/Minutes 30 x 3 Comments tactile cues for positioning Manual Therapy Treatment Soft Tissue Mobilization 1 Body Location cervical area and UT's Mobilization Type Cross-Friction Sustained Pressure Trigger Point Release Intensity/Depth Moderate Body Position Supine Joint Mobilizations 1 Joint cervical spine Direction multi Grade II Body Position Supine Manual Traction Cervical Body Position Supine Comments tolerated well today PT-OP-R Modalities Start: 12/31/18 16:47 Freq: Status: Active Protocol: Document 02/15/19 09:45 AMB (Rec: 02/15/19 11:59 AMB [email or web address]) Hot Pack/Cold Pack Treatment Hot Pack Location cervical Patient Position Hooklying Treatment Duration (minutes) 12 Patient Tolerance Good Comments End of session Ultrasound Therapy Treatment Right Neck Treatment Duration (minutes) 8 Patient Position Sitting Coupling Medium Ultrasound Gel Applicator Size (cm2) 5 Duty Cycle 100% Intensity Setting (w/cm2) 1.5 PT-OP-T Assessment and Plan Start: 12/31/18 16:47 Freq: Status: Active Protocol: Document 02/15/19 09:45 AMB (Rec: 02/15/19 11:59 AMB [email or web address]) Physical Therapy Assessment Assessment Summary Assessment Pt really noticing pain with head turns but not during everyday activities at this point. Physical Therapy Plan Next Visit Focus/Plan Next Note Type Treatment Note Next Visit Plan Re-visit postural correction with daily activity, progress cervical strengthening.
--- NOTE | 2019-02-18 15:49 | PT.OTN ---
Current Diagnoses Pain in right shoulder (02/18/19) Cervicalgia (02/18/19) Physical Therapy Treatment Note PT-OP-A Visit Information Start: 12/31/18 16:47 Freq: Status: Active Protocol: Document 02/18/19 15:40 SA (Rec: 02/18/19 15:49 SA [email or web address]) Out-Patient Physical Therapy Visit Information Visit Information Visit Type Treatment Note Visit Start Time 14:30 Visit Stop Time 13:16 Total Visit Minutes 46 Visit Number 10 Number of FIELD TRAINING AGENT Visits 1 PT-OP-B Current Condition Start: 12/31/18 16:47 Freq: Status: Active Protocol: Document 12/31/18 14:30 DLM (Rec: 12/31/18 18:09 DLM [id number]) Current Condition History of Current Condition Onset Date 12/29/18 Current Complaints right sided neck pain History of Current Condition She woke up with severe pain in the right side of her neck. She is not aware of any injury. The day before she was weeding in her garden. One week ago she was helping her children move. Before that she was staying with family sleeping on an air mattress. She has noted stiffness in her neck for a while but it is never this painful. She is also having pain in her neck if she tries to lift or push with her right UE. She saw her physician today. Prior Treatments and Tests none Future Testing and Treatments Planned none Prior Functional Status Baseline Function- ADL's Independent Baseline Function- Mobility Independent Baseline Function- Gait Independent without device, community distances Baseline Function- Recreation/Hobbies She does exercises classes/ routines. She has notes stiffness in her neck that limits how far she can move during exercises. She likes to garden. Current Functional Impairments (Reported) Functional Limitations- ADL's Her had to help her put her bra on today due to the pain. She has increased pain getting clothes out of the closet. She can not push up with right UE. Functional Limitations- Mobility/Gait Her helped her get out of bed today due to the pain. She can not push herself up with right UE to get out of bed. Her gait has not been affected. Functional Limitations- Recreation/ She is unable to garden at Hobbies this time. Personal Factors Other Personal Factors That May Effect Her Spouse is also attending Therapy/Recovery Physical Therapy for neck/back pain. PT-OP-C Subjective Start: 12/31/18 16:47 Freq: Status: Active Protocol: Document 02/18/19 15:40 SA (Rec: 02/18/19 15:49 SA [email or web address]) OP-PT Subjective Patient Comments Patient Comments Pt reports gradual improvement , was a little sore after last visit but feeling good today. PT-OP-J Posture/Palpation/Skin Start: 12/31/18 16:47 Freq: Status: Active Protocol: Document 12/31/18 14:30 DLM (Rec: 12/31/18 18:09 DLM [id number]) Posture Evaluation Position Sitting Evaluation View Anterior Head/C-Spine Posture Side Bent Right Forward Head Shoulder Posture (L) Rounded (R) Rounded (R) Elevated Palpation Assessment Location One Palpation Location Cervical Palpation Findings Soft Tissue Tightness Tenderness Trigger Point Palpation Details right cervical tenderness with point tenderness at C5, tightness right UT/rhomboids/ scalenes, tightness right thoracic paraspinals PT-OP-K Range of Motion Start: 12/31/18 16:47 Freq: Status: Active Protocol: Document 01/14/19 09:00 DLM (Rec: 01/14/19 10:19 DLM [id number]) Cervical Spine Range of Motion Cervical Spine Active Percentage Testing Position Sitting Flexion 80 Extension 90 Rotation Left 75 Rotation Right 60 Lateral Flexion Left 20 Lateral Flexion Right 25 ROM Limitations Soft Tissue Tightness Pain Comments right cervical pain with right rotation PT-OP-L Special Tests Start: 12/31/18 16:47 Freq: Status: Active Protocol: Document 12/31/18 14:30 DLM (Rec: 12/31/18 18:10 DLM [id number]) Special Tests Cervical Spine Special Tests Foraminal Compression Test Results negative Traction Test Results increased cervical pain on right PT-OP-M Strength Start: 12/31/18 16:47 Freq: Status: Active Protocol: Document 12/31/18 14:30 DLM (Rec: 12/31/18 18:09 DLM [id number]) Cervical Spine Strength Cervical Spine Manual Muscle Testing Testing Position Sitting Flexion (C1-2) 4- Good- Extension 4- Good- Rotation Left 4 Good Rotation Right 4 Good Lateral Flexion Left (C3) 4- Good- Lateral Flexion Right (C3) 4- Good- Shoulder Strength Shoulder Manual Muscle Testing Right Flexion 5 Normal Extension 5 Normal Abduction (C5) 5 Normal Adduction 5 Normal External Rotation 5 Normal Internal Rotation 5 Normal Left Flexion 5 Normal Extension 5 Normal Abduction (C5) 5 Normal Adduction 5 Normal External Rotation 5 Normal Internal Rotation 5 Normal Elbow/Forearm Strength Elbow and Forearm Manual Muscle Testing Right Flexion (C6) 5 Normal Extension (C7) 5 Normal Left Flexion (C6) 5 Normal Extension (C7) 5 Normal Wrist Strength Wrist Manual Muscle Testing Right Flexion (C7) 5 Normal Extension (C6) 5 Normal Left Flexion (C7) 5 Normal Extension (C6) 5 Normal Hand Jig Boring Machine Operator For Metal/Pinch Strength Hand Dominance Hand Dominance Right PT-OP-Q Treatments Start: 12/31/18 16:47 Freq: Status: Active Protocol: Document 02/18/19 15:40 SA (Rec: 02/18/19 15:49 SA [email or web address]) Cardio Equipment Upper Body Ergometer (UBE) Duration (Minutes) 6 Other 3' forward and 3' backward Therapeutic Exercises Supine Exercises 1 Supine Exercise Name foam roll postural stretch Equipment Used 1/2 foam roll Reps/Minutes 3 min Comments UE's at sides and over-head Sitting Exercises 4 Sitting Exercise Name UT stretch holding edge of mat Side bilateral Reps/Minutes 20 sec hold x 3 reps each side 3 Sitting Exercise Name scapular pinches Side bilateral Reps/Minutes 15 2 Sitting Exercise Name cervical AROM Side bilateral Reps/Minutes 10 each motion 1 Sitting Exercise Name posterior shoulder rolls Side bilateral Reps/Minutes 15 Standing Exercises 1 Standing Exercise Name low row Resistance # 2 band Reps/Minutes 2x10 Comments vc to avoid shoulder elevation Postural Wall stretch Side bilateral Equipment Used wall Reps/Minutes 30 x 3 Comments tactile cues for positioning Manual Therapy Treatment Soft Tissue Mobilization 1 Body Location cervical area and UT's Mobilization Type Cross-Friction Sustained Pressure Trigger Point Release Intensity/Depth Moderate Body Position Supine Joint Mobilizations 1 Joint cervical spine Direction multi Grade II Body Position Supine Manual Traction Cervical Body Position Supine Comments tolerated well today PT-OP-R Modalities Start: 12/31/18 16:47 Freq: Status: Active Protocol: Document 02/18/19 15:40 SA (Rec: 02/18/19 15:49 SA [email or web address]) Hot Pack/Cold Pack Treatment Hot Pack Location cervical Patient Position Hooklying Treatment Duration (minutes) 12 Patient Tolerance Good Comments End of session Ultrasound Therapy Treatment Right Neck Treatment Duration (minutes) 8 Patient Position Sitting Coupling Medium Ultrasound Gel Applicator Size (cm2) 5 Duty Cycle 100% Intensity Setting (w/cm2) 1.5 PT-OP-T Assessment and Plan Start: 12/31/18 16:47 Freq: Status: Active Protocol: Document 02/18/19 15:40 SA (Rec: 02/18/19 15:49 SA [email or web address]) Physical Therapy Assessment Assessment Summary Assessment Cervical rotn to R still painful at end range, pt becoming more aware of posture and self correcting more. Physical Therapy Plan Next Visit Focus/Plan Next Note Type Treatment Note Next Visit Plan Cont with strengthening, ROM and manual therapy.
--- NOTE | 2019-02-23 16:15 | PT.OTN ---
Current Diagnoses Pain in right shoulder (02/23/19) Cervicalgia (02/23/19) Physical Therapy Treatment Note PT-OP-A Visit Information Start: 12/31/18 16:47 Freq: Status: Active Protocol: Document 02/23/19 15:15 AMB (Rec: 02/23/19 15:24 AMB [id number]) Out-Patient Physical Therapy Visit Information Visit Information Visit Type Progress Note Visit Start Time 15:15 Visit Stop Time 16:00 Total Visit Minutes 45 Visit Number 11 Number of SPREADER OPERATOR Visits 0 PT-OP-B Current Condition Start: 12/31/18 16:47 Freq: Status: Active Protocol: Document 12/31/18 14:30 DLM (Rec: 12/31/18 18:09 DLM [id number]) Current Condition History of Current Condition Onset Date 12/29/18 Current Complaints right sided neck pain History of Current Condition She woke up with severe pain in the right side of her neck. She is not aware of any injury. The day before she was weeding in her garden. One week ago she was helping her children move. Before that she was staying with family sleeping on an air mattress. She has noted stiffness in her neck for a while but it is never this painful. She is also having pain in her neck if she tries to lift or push with her right UE. She saw her physician today. Prior Treatments and Tests none Future Testing and Treatments Planned none Prior Functional Status Baseline Function- ADL's Independent Baseline Function- Mobility Independent Baseline Function- Gait Independent without device, community distances Baseline Function- Recreation/Hobbies She does exercises classes/ routines. She has notes stiffness in her neck that limits how far she can move during exercises. She likes to garden. Current Functional Impairments (Reported) Functional Limitations- ADL's Her had to help her put her bra on today due to the pain. She has increased pain getting clothes out of the closet. She can not push up with right UE. Functional Limitations- Mobility/Gait Her helped her get out of bed today due to the pain. She can not push herself up with right UE to get out of bed. Her gait has not been affected. Functional Limitations- Recreation/ She is unable to garden at Hobbies this time. Personal Factors Other Personal Factors That May Effect Her Spouse is also attending Therapy/Recovery Physical Therapy for neck/back pain. PT-OP-C Subjective Start: 12/31/18 16:47 Freq: Status: Active Protocol: Document 02/23/19 15:15 AMB (Rec: 02/23/19 15:24 AMB [id number]) OP-PT Subjective Patient Comments Patient Comments Pt woke up with right sided back pain last Thursday. PT-OP-J Posture/Palpation/Skin Start: 12/31/18 16:47 Freq: Status: Active Protocol: Document 12/31/18 14:30 DLM (Rec: 12/31/18 18:09 DLM [id number]) Posture Evaluation Position Sitting Evaluation View Anterior Head/C-Spine Posture Side Bent Right Forward Head Shoulder Posture (L) Rounded (R) Rounded (R) Elevated Palpation Assessment Location One Palpation Location Cervical Palpation Findings Soft Tissue Tightness Tenderness Trigger Point Palpation Details right cervical tenderness with point tenderness at C5, tightness right UT/rhomboids/ scalenes, tightness right thoracic paraspinals PT-OP-K Range of Motion Start: 12/31/18 16:47 Freq: Status: Active Protocol: Document 01/14/19 09:00 DLM (Rec: 01/14/19 10:19 DLM [id number]) Cervical Spine Range of Motion Cervical Spine Active Percentage Testing Position Sitting Flexion 80 Extension 90 Rotation Left 75 Rotation Right 60 Lateral Flexion Left 20 Lateral Flexion Right 25 ROM Limitations Soft Tissue Tightness Pain Comments right cervical pain with right rotation PT-OP-L Special Tests Start: 12/31/18 16:47 Freq: Status: Active Protocol: Document 12/31/18 14:30 DLM (Rec: 12/31/18 18:10 DLM [id number]) Special Tests Cervical Spine Special Tests Foraminal Compression Test Results negative Traction Test Results increased cervical pain on right PT-OP-M Strength Start: 12/31/18 16:47 Freq: Status: Active Protocol: Document 12/31/18 14:30 DLM (Rec: 12/31/18 18:09 DLM [id number]) Cervical Spine Strength Cervical Spine Manual Muscle Testing Testing Position Sitting Flexion (C1-2) 4- Good- Extension 4- Good- Rotation Left 4 Good Rotation Right 4 Good Lateral Flexion Left (C3) 4- Good- Lateral Flexion Right (C3) 4- Good- Shoulder Strength Shoulder Manual Muscle Testing Right Flexion 5 Normal Extension 5 Normal Abduction (C5) 5 Normal Adduction 5 Normal External Rotation 5 Normal Internal Rotation 5 Normal Left Flexion 5 Normal Extension 5 Normal Abduction (C5) 5 Normal Adduction 5 Normal External Rotation 5 Normal Internal Rotation 5 Normal Elbow/Forearm Strength Elbow and Forearm Manual Muscle Testing Right Flexion (C6) 5 Normal Extension (C7) 5 Normal Left Flexion (C6) 5 Normal Extension (C7) 5 Normal Wrist Strength Wrist Manual Muscle Testing Right Flexion (C7) 5 Normal Extension (C6) 5 Normal Left Flexion (C7) 5 Normal Extension (C6) 5 Normal Hand Roller Operator/Pinch Strength Hand Dominance Hand Dominance Right PT-OP-Q Treatments Start: 12/31/18 16:47 Freq: Status: Active Protocol: Document 02/23/19 15:15 AMB (Rec: 02/23/19 16:14 AMB [email or web address]) Cardio Equipment Upper Body Ergometer (UBE) Duration (Minutes) 6 Other 3' forward and 3' backward Therapeutic Exercises Sitting Exercises 5 Sitting Exercise Name chin tuck Reps/Minutes 10x10 4 Sitting Exercise Name UT stretch holding edge of mat Side bilateral Reps/Minutes 20 sec hold x 3 reps each side 3 Sitting Exercise Name scapular pinches Side bilateral Reps/Minutes 15 1 Sitting Exercise Name posterior shoulder rolls Side bilateral Reps/Minutes 15 Standing Exercises 2 Standing Exercise Name pec stretch Reps/Minutes 30x2 1 Standing Exercise Name low row Resistance # 2 band Reps/Minutes 2x10 Comments vc to avoid shoulder elevation Manual Therapy Treatment Soft Tissue Mobilization 1 Body Location cervical area and UT's Mobilization Type Cross-Friction Sustained Pressure Trigger Point Release Intensity/Depth Moderate Body Position Supine Joint Mobilizations 1 Joint cervical spine Direction multi Grade II Body Position Supine Manual Traction Cervical Body Position Supine Comments tolerated well today Manual Techniques 1 Type contract relax Comments for R cervical rotation PT-OP-R Modalities Start: 12/31/18 16:47 Freq: Status: Active Protocol: Document 02/23/19 15:15 AMB (Rec: 02/23/19 16:15 AMB [email or web address]) Hot Pack/Cold Pack Treatment Hot Pack Location cervical Patient Position Hooklying Treatment Duration (minutes) 12 Patient Tolerance Good Comments End of session PT-OP-T Assessment and Plan Start: 12/31/18 16:47 Freq: Status: Active Protocol: Document 02/23/19 15:15 AMB (Rec: 02/23/19 16:14 AMB [email or web address]) Physical Therapy Assessment Assessment Summary Assessment Pt with less pain with cervical rotation R when performing chin tuck correctly . Physical Therapy Plan Next Visit Focus/Plan Next Note Type Discharge Summary
--- NOTE | 2019-02-25 16:55 | PT.OTN ---
Current Diagnoses Pain in right shoulder (02/25/19) Cervicalgia (02/25/19) Physical Therapy Treatment Note PT-OP-A Visit Information Start: 12/31/18 16:47 Freq: Status: Active Protocol: Document 02/25/19 15:15 AMB (Rec: 02/25/19 16:55 AMB [email or web address]) Out-Patient Physical Therapy Visit Information Visit Information Visit Type Treatment Note Visit Start Time 15:15 Visit Stop Time 16:00 Total Visit Minutes 45 Visit Number 12 PT-OP-B Current Condition Start: 12/31/18 16:47 Freq: Status: Active Protocol: Document 12/31/18 14:30 DLM (Rec: 12/31/18 18:09 DLM [id number]) Current Condition History of Current Condition Onset Date 12/29/18 Current Complaints right sided neck pain History of Current Condition She woke up with severe pain in the right side of her neck. She is not aware of any injury. The day before she was weeding in her garden. One week ago she was helping her children move. Before that she was staying with family sleeping on an air mattress. She has noted stiffness in her neck for a while but it is never this painful. She is also having pain in her neck if she tries to lift or push with her right UE. She saw her physician today. Prior Treatments and Tests none Future Testing and Treatments Planned none Prior Functional Status Baseline Function- ADL's Independent Baseline Function- Mobility Independent Baseline Function- Gait Independent without device, community distances Baseline Function- Recreation/Hobbies She does exercises classes/ routines. She has notes stiffness in her neck that limits how far she can move during exercises. She likes to garden. Current Functional Impairments (Reported) Functional Limitations- ADL's Her had to help her put her bra on today due to the pain. She has increased pain getting clothes out of the closet. She can not push up with right UE. Functional Limitations- Mobility/Gait Her helped her get out of bed today due to the pain. She can not push herself up with right UE to get out of bed. Her gait has not been affected. Functional Limitations- Recreation/ She is unable to garden at Hobbies this time. Personal Factors Other Personal Factors That May Effect Her Spouse is also attending Therapy/Recovery Physical Therapy for neck/back pain. PT-OP-C Subjective Start: 12/31/18 16:47 Freq: Status: Active Protocol: Document 02/23/19 15:15 AMB (Rec: 02/23/19 15:24 AMB [id number]) OP-PT Subjective Patient Comments Patient Comments Pt woke up with right sided back pain last Thursday. PT-OP-J Posture/Palpation/Skin Start: 12/31/18 16:47 Freq: Status: Active Protocol: Document 12/31/18 14:30 DLM (Rec: 12/31/18 18:09 DLM [id number]) Posture Evaluation Position Sitting Evaluation View Anterior Head/C-Spine Posture Side Bent Right Forward Head Shoulder Posture (L) Rounded (R) Rounded (R) Elevated Palpation Assessment Location One Palpation Location Cervical Palpation Findings Soft Tissue Tightness Tenderness Trigger Point Palpation Details right cervical tenderness with point tenderness at C5, tightness right UT/rhomboids/ scalenes, tightness right thoracic paraspinals PT-OP-K Range of Motion Start: 12/31/18 16:47 Freq: Status: Active Protocol: Document 01/14/19 09:00 DLM (Rec: 01/14/19 10:19 DLM [id number]) Cervical Spine Range of Motion Cervical Spine Active Percentage Testing Position Sitting Flexion 80 Extension 90 Rotation Left 75 Rotation Right 60 Lateral Flexion Left 20 Lateral Flexion Right 25 ROM Limitations Soft Tissue Tightness Pain Comments right cervical pain with right rotation PT-OP-L Special Tests Start: 12/31/18 16:47 Freq: Status: Active Protocol: Document 12/31/18 14:30 DLM (Rec: 12/31/18 18:10 DLM [id number]) Special Tests Cervical Spine Special Tests Foraminal Compression Test Results negative Traction Test Results increased cervical pain on right PT-OP-M Strength Start: 12/31/18 16:47 Freq: Status: Active Protocol: Document 12/31/18 14:30 DLM (Rec: 12/31/18 18:09 DLM [id number]) Cervical Spine Strength Cervical Spine Manual Muscle Testing Testing Position Sitting Flexion (C1-2) 4- Good- Extension 4- Good- Rotation Left 4 Good Rotation Right 4 Good Lateral Flexion Left (C3) 4- Good- Lateral Flexion Right (C3) 4- Good- Shoulder Strength Shoulder Manual Muscle Testing Right Flexion 5 Normal Extension 5 Normal Abduction (C5) 5 Normal Adduction 5 Normal External Rotation 5 Normal Internal Rotation 5 Normal Left Flexion 5 Normal Extension 5 Normal Abduction (C5) 5 Normal Adduction 5 Normal External Rotation 5 Normal Internal Rotation 5 Normal Elbow/Forearm Strength Elbow and Forearm Manual Muscle Testing Right Flexion (C6) 5 Normal Extension (C7) 5 Normal Left Flexion (C6) 5 Normal Extension (C7) 5 Normal Wrist Strength Wrist Manual Muscle Testing Right Flexion (C7) 5 Normal Extension (C6) 5 Normal Left Flexion (C7) 5 Normal Extension (C6) 5 Normal Hand Call Centre Supervisor/Pinch Strength Hand Dominance Hand Dominance Right PT-OP-Q Treatments Start: 12/31/18 16:47 Freq: Status: Active Protocol: Document 02/25/19 15:15 AMB (Rec: 02/25/19 16:55 AMB [email or web address]) Cardio Equipment Upper Body Ergometer (UBE) Duration (Minutes) 6 Other 3' forward and 3' backward Therapeutic Exercises Sitting Exercises 5 Sitting Exercise Name chin tuck Reps/Minutes 10x10 Standing Exercises 1 Standing Exercise Name low row Resistance # 2 band Reps/Minutes 2x10 Comments vc to avoid shoulder elevation Manual Therapy Treatment Soft Tissue Mobilization 1 Body Location cervical area and UT's Mobilization Type Cross-Friction Sustained Pressure Trigger Point Release Intensity/Depth Moderate Body Position Supine Joint Mobilizations 1 Joint cervical spine Direction multi Grade II Body Position Supine Manual Traction Cervical Body Position Supine Comments tolerated well today Manual Techniques 1 Type contract relax Comments for R cervical rotation PT-OP-R Modalities Start: 12/31/18 16:47 Freq: Status: Active Protocol: Document 02/25/19 15:15 AMB (Rec: 02/25/19 16:55 AMB [email or web address]) Hot Pack/Cold Pack Treatment Hot Pack Location cervical Patient Position Hooklying Treatment Duration (minutes) 12 Patient Tolerance Good Comments End of session Ultrasound Therapy Treatment Right Neck Treatment Duration (minutes) 8 Patient Position Sitting Coupling Medium Ultrasound Gel Applicator Size (cm2) 5 Duty Cycle 100% Intensity Setting (w/cm2) 1.5 PT-OP-T Assessment and Plan Start: 12/31/18 16:47 Freq: Status: Active Protocol: Document 02/25/19 15:15 AMB (Rec: 02/25/19 16:55 AMB [email or web address]) Physical Therapy Assessment Goals Four Impairment Limited functional use of right UE Short Term Goal (STG) Pt will be able to do her normal ADL's without increased pain. STG Duration MET Zipper Sewing Machine Operator Goal (LTG) Pt will be able to return to normal household and recreational activities without increased pain LTG Duration MET Three Impairment Impaired posture Short Term Goal (STG) Resolve right sidebend of her neck in resting position. STG Duration MET Zipper Sewing Machine Operator Goal (LTG) Pt will demonstrate erect posture with increased postural awareness LTG Duration MET Two Impairment Limited cervical AROM Short Term Goal (STG) Increase her cervical flexion and rotation to 75%, increase her lateral flexion to 20%. STG Duration MET Zipper Sewing Machine Operator Goal (LTG) Increase her lateral flexion to 50% LTG Duration NOT MET One Impairment Pain at 4/10, constant Short Term Goal (STG) Decrease her cervical area pain to intermittent. STG Duration MET Halfway Goal (LTG) Decrease her cervical pain to 1/10 or less LTG Duration NOT MET 2/10 Assessment Summary Assessment Pt with pain in the right cervical spine with left rotation today, but overall feels about 90% better and ready to be discharged. Physical Therapy Plan Discharge Physical Therapy Discharge Reasons Goals Met
== END 2019-03-09 10:55 | disposition home or self-care (01) ==
LOC: PHYS 15:15
PROVIDERS: PCP Family Medicine; Visit Provider Nurse Practitioner
DX: M25.511 Pain in right shoulder (principal); M54.2 Cervicalgia
CPT/HCPCS: 97035; 97110; 97140; 97162

== ENCOUNTER → 2019-06-15 15:39 | Outpatient (CLI) | payer MEDICARE, BC, SELFPAY ==
--- NOTE | 2019-06-15 | DI.ECHO.S_ITS ---
[place] [facility]---------+ [facility] +---------+ : : [address] : [address] : : : : [id number] : : : : Phone: [phone]+ Echocardiogram Report + + :Name: ISAAK CHA Study Date: 06/15/2019 Height: 64 in : :[facility] Weight: 135 lb : : Gender: Female BSA: 1.7 m2 : :: 1940 Age: 78 yrs BP: 148/78 mmHg: :Reason For Study: AFIB : : Performed By: [facility] Staff : :Referring: ANDREINA MCDANIEL N : + + Interpretation Summary The left ventricle is normal in size. Left ventricular systolic function is normal. The ejection fraction is estimated to be 55-60%. There are no obvious focal wall motion abnormalities noted but poor endocardial definition reduces the sensitivity for the detection of such. Diastolic parameters suggest a relaxation abnormality of the left ventricle, consistent with probable normal filling pressures. There is moderate aortic regurgitation. Unable to obtain pressure half time due to apical window quality. There is no other significant valvular heart disease. The aortic root is normal size. Procedure: A two-dimensional transthoracic echocardiogram with color flow and Doppler was performed. The study quality was technically limited. A contrast injection of Definity was performed to improve assessment of LV function. The patient was in normal sinus rhythm during the exam. Left Ventricle: The left ventricle is normal in size. There is mild asymmetric left ventricular hypertrophy. Left ventricular systolic function is normal. The ejection fraction is estimated to be 55-60%. There are no obvious focal wall motion abnormalities noted but poor endocardial definition reduces the sensitivity for the detection of such. Diastolic parameters suggest a relaxation abnormality of the left ventricle, consistent with probable normal filling pressures. Right Ventricle: The right ventricle is not well visualized. Atria: The left atrium is not well visualized. Right atrium not well visualized secondary to technical limitations. The interatrial septum is intact with no evidence for an atrial septal defect. Mitral Valve: The mitral valve is normal in structure and function. There is trace mitral regurgitation. Aortic Valve: The aortic valve is trileaflet. The aortic valve opens well. There is moderate aortic regurgitation. Unable to obtain pressure half time due to apical window quality. Tricuspid Valve: The tricuspid valve is normal in structure and function. There is trace tricuspid regurgitation. Pulmonary artery pressures cannot be estimated because of the lack of a measurable TR jet velocity. Pulmonic Valve: The pulmonic valve is normal in structure and function. There is trace pulmonic regurgitation. There is no other significant valvular heart disease. Great Vessels: The aortic root is normal size. The dimensions of the ascending aorta are normal. The pulmonary artery is normal size. The inferior vena cava was not visualized. Pericardium/ Pleura There is no pericardial effusion. There is no pleural effusion. MMode/2D Measurements & Calculations LVIDd: 4.1 cm LVOT diam: 2.0 cm LVIDs: 2.6 cm Ao root diam: 3.2 cm FS: 36.5 % Aortic Jxn: 2.8 cm IVSd: 1.3 cm LVPWd: 0.96 cm LV benitez. diameter/BSA (cm/m^2): 2.5 LV sys. diameter/BSA (cm/m^2): 1.6 Doppler Measurements & Calculations Ao V2 max: 101.4 cm/sec MV E max [place]: 50.0 cm/sec Ao V2 mean: 65.9 cm/sec MV A max [place]: 68.4 cm/sec Ao max P.1 mmHg MV E/A: 0.73 Ao mean P.0 mmHg Med Peak E' [place]: 9.2 cm/sec Ao V2 VTI: 24.1 cm E/E' med: 5.4 Lat Peak E' [place]: 6.1 cm/sec E/E' lat: 8.2 E/e' average: 6.8 MV dec time: 0.26 sec TR max [place]: 184.7 cm/sec TR max P.7 mmHg PA V2 max: 75.9 cm/sec PA V2 mean: 50.6 cm/sec PA mean P.2 mmHg PA Accel Time: 0.12 sec Reading Physician:06:50 PM
== END ==
PROVIDERS: PCP Family Medicine; Visit Provider Nurse Practitioner
DX: I35.1 Nonrheumatic aortic (valve) insufficiency (principal); I48.0 Paroxysmal atrial fibrillation; R06.09 Other forms of dyspnea
CPT/HCPCS: 93306; Q9957

== ENCOUNTER 2019-06-17 07:58 | Emergency (ER) | payer MEDICARE, BC, SELFPAY ==
[2019-06-17 08:00] VITALS: BP 132/59; PULSE 70; RESP 15; TEMP 36.5; O2SAT 97
--- NOTE | 2019-06-17 08:02 | ED_ITS ---
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 She has been through this in the past and historically it is due to a cardiac arrhythmia, her automated weaver states that she should take an extra metoprolol when this happens and then come in. She did so this morning and when medics arrived she was a bit bradycardic, but not by the time they got a strip. On her arrival she is back at baseline. She denies any recent changes in her medications or diet. She denies any change in her level of activity. She denies any chest pain or shortness of breath. She has had no nausea, vomiting or diarrhea. She denies any fever or chills. MD complaint: rapid heart beat and palpitations Onset (ago): hour(s) Duration: now resolved Severity: mild Context: occurred during rest Arrhythmia history: on anti-coagulants and other Associated symptoms: near-syncope Related Data Home Medications Medication Instructions Recorded Confirmed flecainide 100 mg PO BID #0 07/16/11 12/31/18 aspirin [Aspir-81] 81 mg PO DAILY 01/19/18 12/31/18 metoprolol succinate 25 mg PO DAILY 01/19/18 12/31/18 Previous Rx's Medication Instructions Recorded zoster vaccine live (PF) [Zostavax 0.5 ml SQ ONCE #0.5 ml 02/27/17 (PF)] adjuvant AS01B (PF)vial 1 of 2 0.5 ml IM ONCE #0.5 ml 08/10/18 diclofenac sodium 1 % topical gel 2 gram TOP .4-6 hours PRN #100 gram 12/31/18 Allergies Allergy/AdvReac Type Severity Reaction Status Date / Time walnut [WALNUT] Allergy Severe TONGUE Verified 12/31/18 10:41 SWELLING mold [MOLD] Allergy Mild CANKER Verified 12/31/18 10:41 SORES ragweed pollen Allergy Mild SNEEZING, Verified 12/31/18 10:41 [RAGWEED POLLEN] RUNNY NOSE levy [LEVY] Allergy Unknown Verified 12/31/18 10:41 Review of Systems Constitutional Constitutional: Denies chills, Denies fatigue, Denies fever(s), Denies frequent falls, Denies lethargy and Denies weakness Eyes Eyes: Denies change in vision, Denies eye discharge, Denies irritation and Denie s loss of vision ENT Ears, Nose, Mouth, and Throat: Denies change in voice, Reports dizziness, Denies neck pain, Denies sore throat and Denies throat swelling Cardiovascular Cardiovascular: Denies chest pain, Denies irregular heart rhythm, Denies lightheadedness, Reports palpitations, Denies dyspnea, Denies dyspnea on exerti on and Denies orthopnea Comments: near syncope Respiratory Respiratory: Denies cough, Denies dyspnea, Denies dyspnea on exertion and Denies wheezing Gastrointestinal Gastrointestinal: Denies abdominal pain, Denies change in bowel habits, Denies diarrhea, Denies nausea and Denies vomiting Genitourinary Genitourinary: Denies hematuria, Denies flank pain, Denies urinary incontinence and Denies urinary urgency Musculoskeletal Musculoskeletal: Denies back pain, Denies muscle weakness, Denies neck pain, Denies numbness and Denies tingling Integumentary/Breasts Skin/Breast: Denies pruritus, Denies erythema, Denies rash and Denies wounds Neurologic Neurologic: Denies behavioral changes, Denies confusion, Reports dizziness, Denies frequent falls, Denies loss of vision, Denies numbness, Denies tingling and Denies weakness Psychiatric Psychiatric: Denies anxiety, Denies behavioral changes, Denies confusion, Denies depression, Denies homicidal ideation and Denies suicidal ideation Endocrine Endocrine: Denies fatigue, Denies flushing and Reports palpitations Hematologic/Lymphatic Hematologic/Lymphatic: Denies easy bruising Allergic/Immunologic Allergic/Immunologic: Denies urticaria, Denies throat swelling and Denies wheezing Patient History Surgical History Status post hernia repair Status post hysterectomy Family History Mother Cancer Heart disease Social History household members: spouse Exam Narrative Exam Narrative: GENERAL: [78] year old patient appears stated age. Well- nourished, well-developed patient, in mild distress. HEAD: Atraumatic. Normocephalic. EYES: Pupils equal round and reactive. Extraocular motions intact. No scleral icterus. No injection or drainage. ENT: Nose without bleeding, purulent drainage. Throat without erythema, tonsillar hypertrophy or exudate. Airway patent. NECK: Trachea midline. Non tender CARDIOVASCULAR: Regular rate and irregular rhythm without murmurs, gallops, or rubs. RESPIRATORY: Clear to auscultation. Breath sounds equal bilaterally. No wheezes, rales, or rhonchi. GASTROINTESTINAL: Abdomen soft, non-tender, nondistended. EXTREMITIES: No edema or joint tenderness. BACK: Nontender without deformity or crepitance. No flank tenderness. NEURO: AOx3. SKIN: No rash or erythema of visible areas Initial Vital Signs Initial Vital Signs: Vital Signs Temperature 97.7 F 06/17/19 08:00 Pulse Rate 70 06/17/19 08:00 Respiratory Rate 15 06/17/19 08:00 Blood Pressure 132/59 L 06/17/19 08:00 Pulse Oximetry 97 06/17/19 08:00 Course Orders Ordered: ED Orders 06/17/19 07:45 Complete Blood Count AUTO DIFF Stat Comprehensive Metabolic Panel Stat Lipase Stat Magnesium Stat Troponin & CK Cardiac Panel Stat 06/17/19 08:04 XR chest 1V Stat EKG-12 Lead Stat Sodium Chloride (Normal Saline 0.9%) 1,000 mls @ 150 mls/hr IV CONT TALIA Last Infusion: 06/17/19 10:01 Dose: 0 mls/hr Documented by: Admin: 06/17/19 08:23 Dose: 150 mls/hr Documented by: HI Consultations Consultation #1: call to cardio (Elsie) to discuss case. He is happy with response to meds and ongoing lack of symptoms. No medication change, follow up. Vital Signs Vital signs: Vital Signs - 8 hr 06/17/19 08:00 06/17/19 09:07 06/17/19 10:00 Temperature 97.7 F Pulse Rate 70 61 74 Respiratory Rate 15 16 12 Blood Pressure 132/59 L Blood Pressure [Right Arm] 122/64 128/67 Pulse Oximetry 97 100 98 MDM - Arrhythmia/Palpitations Lab Data Result diagrams: 06/17/19 07:45 06/17/19 07:45 Labs: Lab Results 06/17/19 06/17/19 06/17/19 Range/Units 07:45 07:45 07:45 WBC 5.4 (4.5-11.0) X10^3/uL RBC 4.52 (4.0-5.2) X10^6/uL Hgb 13.4 (12.0-16.0) g/dL Hct 40.3 (36-46) % MCV 89.2 (80-100) fL MCH 29.7 (26-34) PG MCHC 33.3 (30-36) % RDW 12.6 (11.6-14.8) % Plt Count 248 (150-400) X10^3/uL Neut % (Auto) 58.9 (50-75) % Lymph % (Auto) 29.1 (25-40) % Nuckolls % (Auto) 8.7 (3-14) % Eos % (Auto) 2.5 (2-4) % Baso % (Auto) 0.8 (0-2) % Neut # (Auto) 3200 (7154-9994) /uL Lymph # (Auto) 1600 (4371-0612) /uL Nuckolls # (Auto) 500 (0-900) /uL Eos # (Auto) 100 (0-450) /uL Baso # (Auto) 0 (0-100) /uL Sodium 140 (137-145) mmol/L Potassium 3.5 (3.4-5.1) mmol/L Chloride 103 (98-107) mmol/L Carbon Dioxide 29 (22-32) mmol/L BUN 28 H (7-17) mg/dL Creatinine 0.80 (0.52-1.04) mg/dL Estimated GFR > 60.0 (>60) mL/min BUN/Creatinine Ratio 35.0 H (6-22) Glucose 114 H (80-110) mg/dL Calcium 8.9 (8.4-10.2) mg/dL Magnesium 2.0 (1.6-2.3) mg/dL Total Bilirubin 0.4 (0.2-1.3) mg/dL AST 25 (14-36) IU/L ALT 15 (<35) IU/L Alkaline Phosphatase 98 (38-126) U/L Total Creatine Kinase 28 L (30-135) U/L CK-MB (CK-2) TNP CK-MB (CK-2) Rel Index TNP Troponin I < 0.012 (0.01-0.034) ng/mL Total Protein 7.2 (6.3-8.2) g/dL Albumin 3.8 (3.5-5.0) g/dL Globulin 3.4 (1.7-4.1) g/dL Albumin/Globulin Ratio 1.1 (1.0-2.8) Lipase 29 (23-300) U/L Imaging Data Chest x-ray: Radiologist's impression: [address] [address] XRay Report Signed Patient: Chhaya Schmitt RMR#: [id number] : 1Acct:[id number] Age/Sex: 78 / FDate of Service: 06/17/19 Loc: ED Accession Number: [id number] Procedure: XR chest 1V Ordering Provider: Beltran Leach D.O. PROCEDURE: XR CHEST 1V INDICATIONS: near syncope TECHNIQUE: One view of the chest was acquired. COMPARISON: CT pulmonary angiogram 10/20/2018. FINDINGS: Surgical changes and devices: None. Lungs and pleura: No consolidation. Lungs appear clear. Increased interstitial markings. Prominent lung volumes. No pleural effusions or pneumothorax. Mediastinum: Mediastinal contours appear normal. Heart size is normal. Bones and chest wall: No suspicious bony lesions. Overlying soft tissues appear unremarkable. IMPRESSION: No acute cardiopulmonary abnormality. Emphysematous change. Dictated by: Regan Patel M.D. on 06/17/2019 at 8:18 Approved by: Regan Patel M.D. on 06/17/2019 at 8:19 ECG Data Attestation: I personally reviewed and interpreted this ECG as follows: Prior ECG tracings: available for review Interpretation: Sinus rhythm with first-degree block and frequent PVCs. No ST segmental changes or t wave inversions.Rate 75, P are 237, QRS 112, QTC 377 MDM Narrative Medical decision making narrative: 70-year-old female with extensive history of arrhythmia is presents with episodes of palpitations this morning which seemed to have resolved with taking an extra beta-kun. Continued observation demonstrates lack of ongoing symptoms. Exam labs and ongoing EKGs are very reassuring. Garment Steamer in patient's group happy with her progress and recommends discharge. She has been given return precautions and has had questions answered to her apparent satisfaction. Discharge Plan Departure Patient Disposition: Home Clinical Impression: Palpitations Instructions: Arrhythmias Activity Restrictions/Additional Instructions: *You have been diagnosed with [arrhythmias] *What to do: *Take medications as directed *Follow up with your cardiology provider in 2-3 days, call for an appointment. Let them know you were seen in the Emergency Department and that we ask that you be seen in follow up *Return to ER if you should have any new, worsening or concerning symptoms Prescriptions: No Action flecainide 100 MG tablet 100 mg PO BID Qty: 0 RF: 0 zoster vaccine live (PF) [Zostavax (PF)] 19,400 UNIT/0.65 ML suspension for reconstitution 0.5 ml SQ ONCE Qty: 0.5 RF: 0 adjuvant AS01B (PF)vial 1 of 2 [Shingrix Adjuvant Component-PF] suspension 0.5 ml IM ONCE Qty: 0.5 RF: 0 diclofenac sodium 1 % gel 2 gram TOP .4-6 hours PRN (Reason: for pain) Qty: 100 RF: 1 aspirin [Aspir-81] 81 mg Tablet,Delayed Release (Dr/Ec) 81 mg PO DAILY RF: 0 metoprolol succinate 25 mg Tablet Extended Release 24 Hr 25 mg PO DAILY RF: 0 Referrals: Amalia Watson DO [Primary Care Provider] -
[2019-06-17 08:12] LABS: Add Manual Diff / Slide Review NO; Basophils Absolute Auto 0 /uL (0-100); Basophils Percent Auto 0.8 % (0-2); Eosinophils Absolute Auto 100 /uL (0-450); Eosinophils Percent Auto 2.5 % (2-4); Hematocrit 40.3 % (36-46); Hemoglobin 13.4 g/dL (12.0-16.0); Lymphocytes Absolute Auto 1600 /uL (1100-4500); Lymphocytes Percent Auto 29.1 % (25-40); Mean Corpuscular HGB Conc 33.3 % (30-36); Mean Corpuscular Hemoglobin 29.7 PG (26-34); Mean Corpuscular Volume 89.2 fL (80-100); Monocytes Absolute Auto 500 /uL (0-900); Monocytes Percent Auto 8.7 % (3-14); Neutrophils Absolute Auto 3200 /uL (1500-7000); Neutrophils Percent Auto 58.9 % (50-75); Platelet Count 248 X10^3/uL (150-400); Red Blood Cell Count 4.52 X10^6/uL (4.0-5.2); Red Cell Distribution Width 12.6 % (11.6-14.8); White Blood Cell Count 5.4 X10^3/uL (4.5-11.0)
[2019-06-17 08:23] LABS: Alanine Aminotransferase 15 IU/L (<35); Albumin 3.8 g/dL (3.5-5.0); Albumin Globulin Ratio 1.1 (1.0-2.8); Alkaline Phosphatase 98 U/L (38-126); Aspartate Aminotransferase 25 IU/L (14-36); Bilirubin Total 0.4 mg/dL (0.2-1.3); Blood Urea Nitrogen 28 mg/dL (7-17); Calcium 8.9 mg/dL (8.4-10.2); Carbon Dioxide 29 mmol/L (22-32); Chloride 103 mmol/L (98-107); Creatine Kinase 28 U/L (30-135); Estimated Glomerular Filt Rate > 60.0 mL/min (>60); Globulin 3.4 g/dL (1.7-4.1); Glucose 114 mg/dL (80-110); HEMOLYSIS < 15 (0-50); Lipase 29 U/L (23-300); Potassium 3.5 mmol/L (3.4-5.1); Sodium 140 mmol/L (137-145); Total Protein 7.2 g/dL (6.3-8.2)
[2019-06-17] MEDS: SODIUM CHLORIDE 0.9% 1,000 ML 150 ML IV (08:23)
[2019-06-17 08:35] LABS: Troponin I < 0.012 ng/mL (0.01-0.034)
[2019-06-17 09:07] VITALS: BP 122/64; PULSE 61; RESP 16; O2SAT 100
[2019-06-17 10:00] VITALS: BP 128/67; PULSE 74; RESP 12; O2SAT 98
[2019-06-17 10:10] VITALS: RESP 14; O2SAT 98
== END 2019-06-17 10:10 | disposition home or self-care (01) ==
PROVIDERS: Emergency Provider Emergency Medicine; PCP Family Medicine
DX: R00.2 Palpitations (principal)
CPT/HCPCS: 71045; 80053; 82550; 83690; 83735; 84484; 85025; 93005; 96360; 96361; 99283; 99285

== ENCOUNTER → 2019-12-19 08:57 | Outpatient (CLI) | payer MEDICARE, BC, SELFPAY ==
[2019-12-19 21:13] LABS: COVID19 Sendout Not Detected (Not Detect)
== END ==
PROVIDERS: PCP Family Medicine; Visit Provider Registered Nurse
DX: Z01.818 Encounter for other preprocedural examination (principal)
CPT/HCPCS: 87635

== ENCOUNTER → 2020-03-20 17:26 | Outpatient (CLI) | payer MEDICARE, BC, SELFPAY ==
--- NOTE | 2020-03-20 17:29 | DI.MG.S_ITS ---
BILATERAL DIGITAL SCREENING MAMMOGRAM 3D/2D WITH CAD: 03/20/2020 CLINICAL: Routine screening. Family history of breast cancer. Comparison is made to exams dated: 03/17/2018 mammogram, 03/10/2016 mammogram - [facility], and 01/15/2006 mammogram - [facility]. The tissue of both breasts is heterogeneously dense. This may lower the sensitivity of mammography. Current study was also evaluated with a Computer Aided Detection (CAD) system. No significant masses, calcifications, or other findings are seen in either breast. There has been no significant interval change. IMPRESSION: NEGATIVE There is no mammographic evidence of malignancy. A 1 year screening mammogram is recommended. This exam was interpreted at Station ID: [id number]. NOTE: For mammograms, a report in lay terms will be sent to the patient. Approximately 15% of breast malignancies will not be visualized mammographically. In the management of a palpable breast mass, a negative mammogram must not discourage biopsy of a clinically suspicious lesion. Electronically Signed By: Millie robles/ashwini:03/21/2020 09:10:47 letter sent: Normal Exam ACR BI-RADS Category 1: Negative 3341F
== END ==
PROVIDERS: PCP Family Medicine; Referring Provider Family Medicine; Visit Provider Family Medicine
DX: Z12.31 Encounter for screening mammogram for malignant neoplasm of breast (principal); Z80.3 Family history of malignant neoplasm of breast
CPT/HCPCS: 77063; 77067

== ENCOUNTER → 2020-05-23 13:40 | Outpatient (CLI) | payer MEDICARE, BC, SELFPAY ==
[2020-05-23 15:01] LABS: Alanine Aminotransferase 18 IU/L (<35); Albumin 3.7 g/dL (3.5-5.0); Albumin Globulin Ratio 1.3 (1.0-2.8); Alkaline Phosphatase 81 U/L (38-126); Aspartate Aminotransferase 26 IU/L (14-36); BUN Creatinine Ratio 38.2 (6-22); Bilirubin Total 0.3 mg/dL (0.2-1.3); Blood Urea Nitrogen 26 mg/dL (7-17); Carbon Dioxide 32 mmol/L (22-32); Chloride 102 mmol/L (98-107); Estimated Glomerular Filt Rate > 60.0 mL/min (>60); Globulin 2.8 g/dL (1.7-4.1); Glucose 75 mg/dL (80-110); HEMOLYSIS < 15 (0-50); Potassium 4.2 mmol/L (3.4-5.1); Sodium 137 mmol/L (137-145); Total Protein 6.5 g/dL (6.3-8.2)
[2020-05-23 15:31] LABS: Thyroid Stimulating Hormone 2.26 uIU/mL (0.47-4.68)
== END ==
PROVIDERS: PCP Family Medicine; Referring Provider Internal Medicine Cardiovascular Disease; Visit Provider Internal Medicine Cardiovascular Disease
DX: I48.0 Paroxysmal atrial fibrillation (principal)
CPT/HCPCS: 36415; 80053; 84443

== ENCOUNTER → 2020-05-24 09:25 | Outpatient (CLI) | payer MEDICARE, BC, SELFPAY ==
[2020-05-24 11:33] LABS: Alanine Aminotransferase 18 IU/L (<35); Albumin 3.9 g/dL (3.5-5.0); Albumin Globulin Ratio 1.2 (1.0-2.8); Alkaline Phosphatase 81 U/L (38-126); Aspartate Aminotransferase 27 IU/L (14-36); BUN Creatinine Ratio 35.4 (6-22); Bilirubin Total 0.5 mg/dL (0.2-1.3); Blood Urea Nitrogen 23 mg/dL (7-17); Calcium 8.7 mg/dL (8.4-10.2); Carbon Dioxide 31 mmol/L (22-32); Chloride 103 mmol/L (98-107); Cholesterol 192 mg/dL (140-199); Estimated Glomerular Filt Rate > 60.0 mL/min (>60); Globulin 3.2 g/dL (1.7-4.1); Glucose 84 mg/dL (80-110); HDL Cholesterol 68 mg/dL (40-60); HEMOLYSIS < 15 (0-50); LDL Cholesterol Calculated 105 mg/dL (<100); Sodium 138 mmol/L (137-145); Total Protein 7.1 g/dL (6.3-8.2); Triglycerides 95 mg/dL (35-150)
[2020-05-24 12:39] LABS: TSH w/ Reflex to FT4 2.12 uIU/mL (0.47-4.68)
== END ==
PROVIDERS: PCP Family Medicine; Referring Provider Family Medicine; Visit Provider Family Medicine
DX: Z79.899 Other long term (current) drug therapy (principal); R60.9 Edema, unspecified
CPT/HCPCS: 36415; 80053; 80061; 84443

== ENCOUNTER → 2020-06-05 13:37 | Outpatient (CLI) | payer MEDICARE, BC, SELFPAY ==
[2020-06-07 07:29] LABS: COVID19 Sendout Not Detected (Not Detect)
== END ==
PROVIDERS: PCP Family Medicine; Visit Provider Physician Assistant
DX: Z01.812 Encounter for preprocedural laboratory examination (principal)
CPT/HCPCS: 87635

== ENCOUNTER → 2020-06-08 12:50 | Outpatient (CLI) | payer MEDICARE, BC, SELFPAY ==
--- NOTE | 2020-06-13 08:08 | PM.PFT.1 ---
Pulmonary Function Test Referral & Results Date Patient Seen: 06/08/20 Requesting provider: Arnulfo Robins Results: The spirometry demonstrates an FVC of 2.16 L which is 81% of predicted. The FEV1 was measured at 1.63 L which is 82% of predicted. The FEV1/FVC ratio was 75 which is 101% of predicted. Following the administration of bronchodilator there was a 14% improvement in FEV1 and a 58% improvement in FEF 25-75%. Lung volumes show an SVC of 2.34 L which is 87% of predicted. The diffusing capacity was measured at 16.98 which is 69% of predicted. No hemoglobin value was provided, so no correction for potential anemia could be made, if appropriate. The maximum voluntary ventilation was reduced Interpretation: This study demonstrates mild obstructive lung disease based on reduction FEV1 although FEV1/FVC ratio was normal. There is also minimal improvement in both FEV1 and more substantial improvement in FEF 25-75% following bronchodilator administration. This suggests primarily improvement in small airway flow There is minimal reduction in SVC suggesting the possibility of minimal restrictive lung disease although this could also be considered normal There is a notable reduction in diffusing capacity suggesting element of disease at the capillary alveolar level as well, unless patient is anemic as above. Clinical correlation suggested
== END ==
PROVIDERS: PCP Family Medicine; Referring Provider Internal Medicine Cardiovascular Disease; Visit Provider Internal Medicine Cardiovascular Disease
DX: I48.0 Paroxysmal atrial fibrillation (principal); Z79.899 Other long term (current) drug therapy; R06.00 Dyspnea, unspecified; J98.8 Other specified respiratory disorders
CPT/HCPCS: 94060; 94726; 94729

== ENCOUNTER → 2020-12-18 09:03 | Outpatient (CLI) | payer MEDICARE, BC, SELFPAY ==
[2020-12-18 10:25] LABS: COVID19 -Nasal RAPID Negative (Negative)
== END ==
PROVIDERS: PCP Family Medicine; Referring Provider Internal Medicine; Visit Provider Internal Medicine
DX: Z20.822 Contact with and (suspected) exposure to COVID-19 (principal)
CPT/HCPCS: 87635; C9803

== ENCOUNTER → 2020-12-19 08:45 | Outpatient (CLI) | payer MEDICARE, BC, SELFPAY ==
--- NOTE | 2020-12-21 07:58 | P.PFT.S_ITS ---
Pulmonary Function Test Referral & Results Date Patient Seen: 12/19/20 Requesting provider: Devaughn Aguirre Results: The spirometry demonstrates an FVC of 2.41 L which is 92% of predicted. The FEV1 was measured at 1.70 L which is 88% of predicted. The FEV1/FVC ratio was 71 which is 95% of predicted. Following the administration of bronchodilator there was a 14% improvement in FEV1 and a 59% improvement in FEF 25-75%. Lung volumes show an SVC of 2.55 L which is 96% of predicted. The diffusing capacity was measured at 17.60 which is 72% of predicted. No hemoglobin value was provided, so no correction for potential anemia could be made, if appropriate. The maximum voluntary ventilation was reduced Interpretation: This study demonstrates probably normal spirometry although there is some m easurable improvement post bronchodilator in FEV1 and FEF 25-75% Diffusing capacity is minimally reduced Maximum voluntary ventilation is more significantly reduced suggesting moderately severe neuromuscular disease in the absence of any abnormality in the spirometry Compared to PFTs performed in June 2020, current study is essentially unchanged
== END ==
PROVIDERS: PCP Family Medicine; Referring Provider Internal Medicine Cardiovascular Disease; Visit Provider Internal Medicine Cardiovascular Disease
DX: Z79.899 Other long term (current) drug therapy (principal); G47.33 Obstructive sleep apnea (adult) (pediatric)
CPT/HCPCS: 94060; 94726; 94729

== ENCOUNTER → 2021-05-14 10:20 | Outpatient (CLI) | payer MEDICARE, BC, SELFPAY ==
[2021-05-14 10:55] LABS: Hematocrit 47.2 % (36-46); Hemoglobin 15.4 g/dL (12.0-16.0); Mean Corpuscular HGB Conc 32.6 % (30-36); Mean Corpuscular Hemoglobin 30.2 PG (26-34); Mean Corpuscular Volume 92.5 fL (80-100); Platelet Count 222 X10^3/uL (150-400); Red Cell Distribution Width 13.4 % (11.6-14.8); White Blood Cell Count 14.7 X10^3/uL (4.5-11.0)
[2021-05-14 11:21] LABS: Appearance Urine UA CLEAR; Bilirubin Urine UA NEGATIVE (NEGATIVE); Color Urine UA YELLOW; Glucose Urine UA TRACE g/dL (Negative); Ketones Urine UA TRACE (NEGATIVE); Leukocyte Esterase Urine UA 2+ (NEGATIVE); Nitrite Urine UA NEGATIVE (Negative); Occult Blood Urine UA 2+ (Negative); Protein Urine UA 1+ (Negative); Urobilinogen Urine UA 0.2 E.U./dL (0.2)
[2021-05-14 11:26] LABS: BUN Creatinine Ratio 64.5 (6-22); Blood Urea Nitrogen 60 mg/dL (7-17); Calcium 9.9 mg/dL (8.4-10.2); Carbon Dioxide 30 mmol/L (22-32); Chloride 102 mmol/L (98-107); Glucose 125 mg/dL (80-110); HEMOLYSIS 32 (0-50); Potassium 4.5 mmol/L (3.4-5.1); Sodium 139 mmol/L (137-145)
[2021-05-14 11:36] LABS: pH Urine UA 5.5 (4.5-8.0)
[2021-05-14 11:37] LABS: COVID19 -Nasal RAPID Negative (Negative)
[2021-05-14 11:40] LABS: RBC Urine None Seen (0-5/HPF); WBC Urine 10-30/HPF (0-5/HPF)
[2021-05-14 11:41] LABS: Bacteria Urine None Seen; Culture Indicated Urine Specimen Cultured; Hyaline Casts Urine 1-5/LPF; Squamous Epithelial Cell Urine 0-1 /HPF (0-5/HPF); Uric Acid Crystals Urine Few
[2021-05-14 11:42] LABS: Calcium Oxalate Crystals Urine Few
== END ==
PROVIDERS: PCP Family Medicine; Referring Provider Nurse Practitioner Family; Visit Provider Nurse Practitioner Family
DX: Z20.822 Contact with and (suspected) exposure to COVID-19 (principal); R11.2 Nausea with vomiting, unspecified
CPT/HCPCS: 36415; 80048; 81001; 85027; 87086; 87635

== ENCOUNTER → 2021-05-31 12:13 | Outpatient (CLI) | payer MEDICARE, BC, SELFPAY | PROVIDERS: PCP Family Medicine; Referring Provider Nurse Practitioner Family; Visit Provider Nurse Practitioner Family | DX: N12 Tubulo-interstitial nephritis, not specified as acute or chronic (principal) | CPT/HCPCS: 87086 ==

== ENCOUNTER → 2021-08-05 13:11 | Outpatient (CLI) | payer MEDICARE, BC, SELFPAY ==
[2021-08-05 14:46] LABS: COVID19 -Nasal RAPID Negative (Negative)
== END ==
PROVIDERS: PCP Family Medicine; Referring Provider Internal Medicine; Visit Provider Internal Medicine
DX: Z20.822 Contact with and (suspected) exposure to COVID-19 (principal)
CPT/HCPCS: 87635; C9803

== ENCOUNTER → 2021-08-05 13:13 | Outpatient (CLI) | payer MEDICARE, BC, SELFPAY ==
--- NOTE | 2021-08-12 08:37 | PM.PFT.1 ---
Pulmonary Function Test Referral & Results Date Patient Seen: 08/05/21 Requesting provider: Arnulfo Robins Results: The spirometry demonstrates an FVC of 1.95 L which is 75% of predicted. The FEV1 was measured at 1.36 L which is 70% of predicted. The FEV1/FVC ratio was 69 which is 93% of predicted. Following the administration of bronchodilator there was no appreciable change Lung volumes show an SVC of 2.27 L which is 85% of predicted. The diffusing capacity was measured at 17.20 which is 70% of predicted. No hemoglobin value was provided, so no correction for potential anemia could be made, if appropriate. The maximum voluntary ventilation was severely reduced Interpretation: This study demonstrates perhaps mild obstructive lung disease based on reduction FEV1 although FEV1/FVC ratio is preserved. There is no evidence of benefit following bronchodilator. There is minimal reduction in lung volumes suggesting minimal restrictive lung disease There is also a mild reduction in diffusing capacity suggesting element of disease at the capillary alveolar level Maximum voluntary ventilation is much more severely reduced than would be expected given degree of obstructive lung disease Compared to PFTs performed in December 2020, current study shows decline in FEV1 and SVC but stability in diffusing capacity. Maximum voluntary ventilation was much better on previous study than current study as well Clinical correlation suggested
== END ==
PROVIDERS: PCP Family Medicine; Referring Provider Internal Medicine Cardiovascular Disease; Visit Provider Internal Medicine Cardiovascular Disease
DX: J98.8 Other specified respiratory disorders (principal); Z79.899 Other long term (current) drug therapy; Z20.822 Contact with and (suspected) exposure to COVID-19
CPT/HCPCS: 87635; 94060; 94726; 94729; C9803

== ENCOUNTER → 2022-01-09 13:26 | Outpatient (CLI) | payer MEDICARE, BC, SELFPAY ==
[2022-01-09 15:21] LABS: Alanine Aminotransferase 17 IU/L (<35); Albumin 3.7 g/dL (3.5-5.0); Albumin Globulin Ratio 1.2 (1.0-2.8); Alkaline Phosphatase 89 U/L (38-126); Aspartate Aminotransferase 27 IU/L (14-36); BUN Creatinine Ratio 47.5 (6-22); Bilirubin Total 0.4 mg/dL (0.2-1.3); Blood Urea Nitrogen 29 mg/dL (7-17); Calcium 8.6 mg/dL (8.4-10.2); Carbon Dioxide 28 mmol/L (22-32); Chloride 104 mmol/L (98-107); Estimated Glomerular Filt Rate > 60 mL/min (>60); Globulin 3.1 g/dL (1.7-4.1); Glucose 90 mg/dL (80-110); HEMOLYSIS < 15 (0-50); Potassium 4.4 mmol/L (3.4-5.1); Sodium 138 mmol/L (137-145); Total Protein 6.8 g/dL (6.3-8.2)
[2022-01-09 15:50] LABS: Thyroid Stimulating Hormone 1.68 uIU/mL (0.47-4.68)
== END ==
PROVIDERS: PCP Family Medicine; Referring Provider Internal Medicine Cardiovascular Disease; Visit Provider Internal Medicine Cardiovascular Disease
DX: Z79.899 Other long term (current) drug therapy (principal)
CPT/HCPCS: 36415; 80053; 84443

== ENCOUNTER → 2022-05-05 13:17 | Outpatient (CLI) | payer MEDICARE, BC, SELFPAY ==
--- NOTE | 2022-05-05 | DI.MG.S_ITS ---
BILATERAL DIGITAL SCREENING MAMMOGRAM 3D/2D WITH CAD: 05/05/2022 CLINICAL: Routine screening. Family history of breast cancer. Comparison is made to exams dated: 03/20/2020 mammogram, 03/17/2018 mammogram, and 03/10/2016 mammogram - . Both breasts are heterogeneously dense, which may obscure small masses (category c / 51-75% glandular tissue). Current study was also evaluated with a Computer Aided Detection (CAD) system. No significant masses, calcifications, or other findings are seen in either breast. There has been no significant interval change. IMPRESSION: NEGATIVE There is no mammographic evidence of malignancy. A 1 year screening mammogram is recommended. Based on the Tyrer Cuzick model (a risk assessment model) the patient's lifetime risk is 2.8% and her 10 year risk is 0.0%. According to the ACR, ACS, and NCCN guidelines, an annual breast MRI exam along with mammogram is recommended if the patient's lifetime risk is 20% or greater. This exam was interpreted at Station ID: [id number]. NOTE: For mammograms, a report in lay terms will be sent to the patient. Approximately 15% of breast malignancies will not be visualized mammographically. In the management of a palpable breast mass, a negative mammogram must not discourage biopsy of a clinically suspicious lesion. Electronically Signed By: Regan mac/ashwini:05/05/2022 13:50:46 letter sent: Normal Exam ACR BI-RADS Category 1: Negative 3341F
== END ==
PROVIDERS: PCP Family Medicine; Referring Provider Family Medicine; Visit Provider Family Medicine
DX: Z12.31 Encounter for screening mammogram for malignant neoplasm of breast (principal); Z80.3 Family history of malignant neoplasm of breast
CPT/HCPCS: 77063; 77067

== ENCOUNTER → 2022-06-11 14:27 | Outpatient (CLI) | payer MEDICARE, BC, SELFPAY ==
[2022-06-11 16:15] LABS: COVID19 -Nasal RAPID Negative (Negative)
== END ==
PROVIDERS: PCP Family Medicine; Referring Provider Internal Medicine; Visit Provider Internal Medicine
DX: Z20.822 Contact with and (suspected) exposure to COVID-19 (principal)
CPT/HCPCS: 87635; C9803

== ENCOUNTER → 2022-06-12 11:51 | Outpatient (CLI) | payer MEDICARE, BC, SELFPAY ==
--- NOTE | 2022-06-18 09:50 | PM.PFT.1 ---
Pulmonary Function Test Referral & Results Date Patient Seen: 06/12/22 Requesting provider: Devaughn Aguirre Results: The spirometry demonstrates an FVC of 2.26 L which is 89% of predicted. The FEV1 was measured at 1.75 L which is 93% of predicted. The FEV1/FVC ratio was 78 which is 106% of predicted. Following the administration of bronchodilator there was no notable change. Lung volumes show an SVC of 2.23 L which is 85% of predicted. The diffusing capacity was measured at 16.53 which is 68% of predicted. The maximum voluntary ventilation was minimally reduced Interpretation: This study demonstrates normal spirometry. There is a mild reduction in diffusing capacity suggesting element of disease at the capillary alveolar level Compared to PFTs performed in August 2021, current study shows normalization of spirometry but is otherwise unchanged
== END ==
PROVIDERS: PCP Family Medicine; Referring Provider Internal Medicine Cardiovascular Disease; Visit Provider Internal Medicine Cardiovascular Disease
DX: J98.8 Other specified respiratory disorders (principal); Z79.899 Other long term (current) drug therapy
CPT/HCPCS: 94060; 94726; 94729

== ENCOUNTER → 2022-07-04 12:18 | Outpatient (CLI) | payer MEDICARE, BC, SELFPAY ==
[2022-07-04 13:05] LABS: Alanine Aminotransferase 29 IU/L (<35); Albumin 3.8 g/dL (3.5-5.0); Albumin Globulin Ratio 1.2 (1.0-2.8); Alkaline Phosphatase 77 U/L (38-126); Aspartate Aminotransferase 29 IU/L (14-36); BUN Creatinine Ratio 46.5 (6-22); Bilirubin Total 0.3 mg/dL (0.2-1.3); Blood Urea Nitrogen 33 mg/dL (7-17); Calcium 8.6 mg/dL (8.4-10.2); Carbon Dioxide 29 mmol/L (22-32); Chloride 105 mmol/L (98-107); Estimated Glomerular Filt Rate > 60 mL/min (>60); Globulin 3.3 g/dL (1.7-4.1); Glucose 104 mg/dL (80-110); HEMOLYSIS < 15 (0-50); Potassium 3.8 mmol/L (3.4-5.1); Sodium 141 mmol/L (137-145); Total Protein 7.1 g/dL (6.3-8.2)
[2022-07-04 13:34] LABS: Thyroid Stimulating Hormone 1.02 uIU/mL (0.47-4.68)
== END ==
PROVIDERS: PCP Family Medicine; Referring Provider Internal Medicine Cardiovascular Disease; Visit Provider Internal Medicine Cardiovascular Disease
DX: Z79.899 Other long term (current) drug therapy (principal)
CPT/HCPCS: 36415; 80053; 84443

== ENCOUNTER → 2023-03-02 12:38 | Outpatient (CLI) | payer MEDICARE, BC, SELFPAY ==
[2023-03-02 15:17] LABS: Alanine Aminotransferase 25 IU/L (<35); Albumin 3.8 g/dL (3.5-5.0); Albumin Globulin Ratio 1.2 (1.0-2.8); Alkaline Phosphatase 100 U/L (38-126); Aspartate Aminotransferase 31 IU/L (14-36); BUN Creatinine Ratio 37.7 (6-22); Bilirubin Total 0.3 mg/dL (0.2-1.3); Blood Urea Nitrogen 26 mg/dL (7-17); Calcium 8.5 mg/dL (8.4-10.2); Carbon Dioxide 31 mmol/L (22-32); Chloride 103 mmol/L (98-107); Cholesterol 231 mg/dL (140-199); Estimated Glomerular Filt Rate > 60 mL/min (>60); Globulin 3.3 g/dL (1.7-4.1); Glucose 78 mg/dL (80-110); HDL Cholesterol 76 mg/dL (40-60); HEMOLYSIS < 15 (0-50); LDL Cholesterol Calculated 122 mg/dL (<100); Sodium 139 mmol/L (137-145); Total Protein 7.1 g/dL (6.3-8.2); Triglycerides 165 mg/dL (35-150)
== END ==
PROVIDERS: PCP Family Medicine; Referring Provider Internal Medicine Cardiovascular Disease; Visit Provider Internal Medicine Cardiovascular Disease
DX: Z79.899 Other long term (current) drug therapy (principal); Z13.220 Encounter for screening for lipoid disorders
CPT/HCPCS: 36415; 80053; 80061; 84443

== ENCOUNTER → 2023-03-20 11:35 | Outpatient (CLI) | payer MEDICARE, BC, SELFPAY ==
--- NOTE | 2023-03-20 11:37 | DI.RAD.S_ITS ---
PROCEDURE: XR CERVICAL SPINE 2V OR 3V INDICATIONS: neck pain and stiffness TECHNIQUE: 4 view(s) of the cervical spine were acquired. COMPARISON: None. FINDINGS: Bones: No fractures or dislocations to the C7 level. The lateral masses of C1 appear intact on the odontoid view. No suspicious bony lesions. There are multilevel degenerative changes of the cervical spine with facet and uncovertebral arthropathy, disc height loss with degenerative endplate changes and spurring. This is most pronounced at C3-C4 and C4-C5. Soft tissues: No prevertebral soft tissue swelling. IMPRESSION: Multilevel degenerative changes of the cervical spine. Dictated by: Hemanth Pierre M.D. on 03/20/2023 at 12:52 Approved by: Hemanth Pierre M.D. on 03/20/2023 at 12:53
== END ==
PROVIDERS: PCP Family Medicine; Referring Provider Family Medicine; Visit Provider Family Medicine
DX: M47.812 Spondylosis without myelopathy or radiculopathy, cervical region (principal); M43.6 Torticollis
CPT/HCPCS: 72040

== ENCOUNTER → 2023-04-20 12:22 | Outpatient (CLI) | payer MEDICARE, BC, SELFPAY | PROVIDERS: PCP Family Medicine; Visit Provider Physician Assistant | DX: R30.0 Dysuria (principal) | CPT/HCPCS: 87086 ==

== ENCOUNTER → 2023-05-13 15:37 | Outpatient (CLI) | payer MEDICARE, BC, SELFPAY ==
--- NOTE | 2023-05-13 | DI.MG.S_ITS ---
BILATERAL DIGITAL SCREENING MAMMOGRAM 3D/2D WITH CAD: 05/13/2023 CLINICAL: Routine screening. Family history of breast cancer. Comparison is made to exams dated: 05/05/2022 mammogram, 03/20/2020 mammogram, and 03/17/2018 mammogram - [facility]. Both breasts are heterogeneously dense, which may obscure small masses (category c / 51-75% glandular tissue). Current study was also evaluated with a Computer Aided Detection (CAD) system. There are benign diffuse calcifications in both breasts. There is a mole marker on the right breast. There are mole markers on the left breast. No significant masses, calcifications, or other findings are seen in either breast. There has been no significant interval change. IMPRESSION: BENIGN There is no mammographic evidence of malignancy. A 1 year screening mammogram is recommended. Based on the Tyrer Cuzick model (a risk assessment model) the patient's lifetime risk is 2.1% and her 10 year risk is 0.0%. According to the ACR, ACS, and NCCN guidelines, an annual breast MRI exam along with mammogram is recommended if the patient's lifetime risk is 20% or greater. This exam was interpreted at Station ID: [id number]. NOTE: For mammograms, a report in lay terms will be sent to the patient. Approximately 15% of breast malignancies will not be visualized mammographically. In the management of a palpable breast mass, a negative mammogram must not discourage biopsy of a clinically suspicious lesion. Electronically Signed By: Tae Yang M.D. acr/penrad:05/14/2023 12:26:40 letter sent: Normal Exam ACR BI-RADS Category 2: Benign Finding(s) 3342F
== END ==
PROVIDERS: PCP Family Medicine; Referring Provider Family Medicine; Visit Provider Family Medicine
DX: Z12.31 Encounter for screening mammogram for malignant neoplasm of breast (principal); Z80.3 Family history of malignant neoplasm of breast
CPT/HCPCS: 77063; 77067

== ENCOUNTER → 2023-06-16 11:52 | Outpatient (CLI) | payer MEDICARE, BC, SELFPAY | PROVIDERS: PCP Family Medicine; Referring Provider Nurse Practitioner; Visit Provider Nurse Practitioner | DX: Z79.899 Other long term (current) drug therapy (principal) | CPT/HCPCS: 94060; 94726; 94729 ==

== ENCOUNTER → 2023-09-03 10:19 | Outpatient (CLI) | payer MEDICARE, BC, SELFPAY ==
--- NOTE | 2023-09-03 10:20 | DI.RAD.S_ITS ---
PROCEDURE: XR LUMBAR SPINE MIN 4V INDICATIONS: chronic low back pain with neuropathy TECHNIQUE: 5 views of the lumbar spine were acquired, including bilateral oblique views. COMPARISON: None. FINDINGS: Bones: 5 gmz-lsa-vizwfuv vertebrae are present. There is normal bony alignment. No vertebral body compression fractures. No suspicious bony lesions. Degenerative disc disease, moderate at L4-L5, mild at other levels. Moderate facet arthropathy at L4-L5 and L5-S1. Soft tissues: Overlying bowel gas pattern is normal. Note is made of atherosclerotic calcifications. Oblique images: No pars defects. IMPRESSION: 1. Moderate degenerative disc and facet disease. Dictated by: Vladislav Carbajal M.D. on 09/03/2023 at 13:16 Approved by: Vladislav Carbajal M.D. on 09/03/2023 at 13:18
== END ==
PROVIDERS: PCP Family Medicine; Referring Provider Family Medicine; Visit Provider Family Medicine
DX: M51.36 Other intervertebral disc degeneration, lumbar region (principal); M47.816 Spondylosis without myelopathy or radiculopathy, lumbar region; M47.817 Spondylosis without myelopathy or radiculopathy, lumbosacral region; G62.9 Polyneuropathy, unspecified; M54.50 Low back pain, unspecified; G89.29 Other chronic pain
CPT/HCPCS: 72110

== ENCOUNTER → 2023-09-09 13:49 | Outpatient (CLI) | payer MEDICARE, BC, SELFPAY ==
--- NOTE | 2023-09-09 15:45 | DI.MRI.S_ITS ---
PROCEDURE: MR LUMBAR SPINE WO CON INDICATIONS: chronic low back pain with neuropathy TECHNIQUE: Noncontrast sagittal T1 spin echo and T2 fast echo, sagittal STIR, and T2 fast spin echo through the lumbar spine. In cases with scoliosis, additional coronal T2 fast spin echo may be performed. COMPARISON: [facility], CT, IVP (ABD & PEL WWO CONTRAST), 08/31/2014, 9:38. [facility], CR, XR LUMBAR SPINE MIN 4V, 09/03/2023, 10:21. FINDINGS: Image quality: This examination is limited by involuntary motion artifact. Alignment and Curvature: There is minimal retrolisthesis seen at the L1-L2 level. Minimal anterolisthesis is seen at L4-L5. Mild levoconvex scoliotic curvature is noted. Bone Marrow: Marrow is of normal overall signal. No acute vertebral body compression fractures. Spinal Cord: Conus medullaris terminates at the L1 level. Visualized cord demonstrates normal signal and size. Paraspinous Soft Tissues: No paravertebral masses. T12-L1: No significant abnormality is seen. L1-L2: Mild to moderate loss of disc height and disc signal can be seen. Mild generalized disc bulge is seen. Mild facet joint hypertrophy is seen. There is moderate right-sided and mild left-sided neural foraminal narrowing. No significant central canal narrowing is seen. L2-L3: Ueke-nl-fwlaikhf loss of disc height and disc signal can be seen. Mild generalized disc bulge is seen. No neural foraminal narrowing or central canal narrowing can be seen. L3-L4: Mild loss of disc height is seen. Loss of disc signal is seen. Mild generalized disc bulge is seen. No neural foraminal narrowing is seen. No central canal narrowing is seen. L4-L5: The disc height is well-preserved. Loss of disc signal is seen at this level. Mild generalized disc bulge is seen. Moderate facet joint hypertrophy is seen. No neural foraminal narrowing is seen. Minimal central canal narrowing is seen. L5-S1: The disc height is well-preserved. Loss of disc signal is seen at this level. Mild generalized disc bulge is seen. Moderate facet joint hypertrophy is seen. There is a presumed perineural cyst seen on the left, as on series 6, image 17 and on series 3, image 13. There is mild left-sided and no right-sided neural foraminal narrowing. No central canal narrowing is seen. IMPRESSION: Multiple levels of lumbar spine degenerative change can be seen. Dictated by: Christian Olivo M.D. on 09/09/2023 at 17:48 Approved by: Christian Olivo M.D. on 09/09/2023 at 17:53
== END ==
LOC: MRI 13:50
PROVIDERS: PCP Family Medicine; Referring Provider Family Medicine; Visit Provider Family Medicine
DX: M47.816 Spondylosis without myelopathy or radiculopathy, lumbar region (principal); M47.817 Spondylosis without myelopathy or radiculopathy, lumbosacral region; G62.9 Polyneuropathy, unspecified; M54.50 Low back pain, unspecified; G89.29 Other chronic pain
CPT/HCPCS: 72148

== ENCOUNTER → 2023-10-19 15:32 | Outpatient (CLI) | payer MEDICARE, BC, SELFPAY ==
--- NOTE | 2023-10-19 15:35 | DI.RAD.S_ITS ---
PROCEDURE: XR TOE RT MIN 2V INDICATIONS: Right great toe vs. furniture, pain medial DIP joint. R/O Fx TECHNIQUE: 3 views of the right great toe(s) acquired. COMPARISON: None. FINDINGS: Bones: There is likely a minimally displaced intra-articular fracture of the distal phalanx of the right great toe. Soft tissues: No suspicious soft tissue densities. IMPRESSION: Probable fracture of the distal phalanx of the right great toe. Dictated by: Millie Alfaro M.D. on 10/19/2023 at 16:45 Approved by: Millie Alfaro M.D. on 10/19/2023 at 16:46
== END ==
LOC: RAD 15:34
PROVIDERS: PCP Family Medicine; Referring Provider Physician Assistant Medical; Visit Provider Physician Assistant Medical
DX: S90.111A Contusion of right great toe without damage to nail, initial encounter (principal); X58.XXXA Exposure to other specified factors, initial encounter
CPT/HCPCS: 73660

== ENCOUNTER → 2024-02-19 07:30 | Outpatient (CLI) | payer MEDICARE, BC, SELFPAY ==
[2024-02-19 08:58] LABS: Hematocrit 39.2 % (36-46); Hemoglobin 13.1 g/dL (12.0-16.0); Mean Corpuscular HGB Conc 33.3 % (30-36); Mean Corpuscular Hemoglobin 30.6 PG (26-34); Mean Corpuscular Volume 91.9 fL (80-100); Platelet Count 199 X10^3/uL (150-400); Red Blood Cell Count 4.27 X10^6/uL (4.0-5.2); Red Cell Distribution Width 13.2 % (11.6-14.8); White Blood Cell Count 5.6 X10^3/uL (4.5-11.0)
[2024-02-19 09:32] LABS: Alanine Aminotransferase 20 IU/L (<35); Albumin 3.5 g/dL (3.5-5.0); Albumin Globulin Ratio 1.3 (1.0-2.8); Alkaline Phosphatase 94 U/L (38-126); Aspartate Aminotransferase 27 IU/L (14-36); BUN Creatinine Ratio 47.5 (6-22); Bilirubin Total 0.5 mg/dL (0.2-1.3); Blood Urea Nitrogen 29 mg/dL (7-17); Calcium 8.5 mg/dL (8.4-10.2); Carbon Dioxide 25 mmol/L (22-32); Chloride 108 mmol/L (98-107); Cholesterol 175 mg/dL (140-199); Estimated Glomerular Filt Rate > 60 mL/min (>60); Globulin 2.6 g/dL (1.7-4.1); Glucose 88 mg/dL (80-110); HDL Cholesterol 86 mg/dL (40-60); HEMOLYSIS < 15 (0-50); LDL Cholesterol Calculated 70 mg/dL (<100); Potassium 4.2 mmol/L (3.4-5.1); Sodium 139 mmol/L (137-145); Total Protein 6.1 g/dL (6.3-8.2); Triglycerides 95 mg/dL (35-150)
[2024-02-19 09:43] LABS: Free T4, Direct Thyroxine 1.75 ng/dL (0.78-2.19)
[2024-02-19 09:56] LABS: Thyroid Stimulating Hormone 1.73 uIU/mL (0.47-4.68)
== END ==
LOC: LAB 07:32
PROVIDERS: PCP Family Medicine; Referring Provider Nurse Practitioner; Visit Provider Nurse Practitioner
DX: E78.5 Hyperlipidemia, unspecified (principal); I48.0 Paroxysmal atrial fibrillation
CPT/HCPCS: 36415; 80053; 80061; 84439; 84443; 85027

== ENCOUNTER → 2024-04-15 15:28 | Outpatient (CLI) | payer MEDICARE, BC, SELFPAY | PROVIDERS: PCP Family Medicine; Visit Provider Urology | DX: R39.9 Unspecified symptoms and signs involving the genitourinary system (principal) | CPT/HCPCS: 87077; 87086; 87186 ==

== ENCOUNTER → 2024-06-13 16:47 | Outpatient (CLI) | payer MEDICARE, BC, SELFPAY ==
--- NOTE | 2024-06-13 16:48 | DI.RAD.S_ITS ---
PROCEDURE: XR FOOT LT MIN 3V INDICATIONS: 4th toe vs door jamb. Pain swelling dorsal MTP's 2-5 TECHNIQUE: 3 views of the foot were acquired. COMPARISON: None. FINDINGS: Bones: Minimally displaced fracture at the distal aspect the 4th proximal phalanx. No definitive intra-articular extension. Soft tissues: No tibiotalar joint effusion. Achilles tendon appears normal. IMPRESSION: Minimally displaced 4th proximal phalanx fracture. Dictated by: Marion Acevedo M.D. on 06/13/2024 at 17:15 Approved by: Marion Acevedo M.D. on 06/13/2024 at 17:16
== END ==
PROVIDERS: PCP Family Medicine; Referring Provider Physician Assistant Medical; Visit Provider Physician Assistant Medical
DX: S92.515A Nondisplaced fracture of proximal phalanx of left lesser toe(s), initial encounter for closed fracture (principal); M79.675 Pain in left toe(s)
CPT/HCPCS: 73630

== ENCOUNTER → 2024-11-23 09:33 | Outpatient (CLI) | payer MEDICARE, BC, SELFPAY | PROVIDERS: PCP Family Medicine; Visit Provider Urology | DX: N32.81 Overactive bladder (principal); N39.41 Urge incontinence | CPT/HCPCS: 87086 ==

== ENCOUNTER → 2024-11-23 16:13 | Outpatient (CLI) | payer MEDICARE, BC, SELFPAY ==
--- NOTE | 2024-11-23 16:15 | DI.MG.S_ITS ---
MM screening mammo BI: 11/23/2024. BI-RADS: 2 CLINICAL: 84-year old female for bilateral screening mammogram. Tyrer-Cuzick lifetime risk of 0.5%. Current reported family history of breast cancer: mother. PRIOR EXAMS 05/13/2023, 05/05/2022, 03/20/2020, 03/17/2018, 03/10/2016. MAMMOGRAPHY TECHNIQUE: 2D and 3D (tomosynthesis) digital mammographic views obtained, with additional images as needed for full coverage. Current study was also evaluated with a Computer Aided Detection (CAD) system. DENSITY C. The breasts are heterogeneously dense, which may obscure small masses. MAMMOGRAPHY FINDINGS Bilateral: Benign-appearing calcifications noted. There are no suspicious masses, calcifications, or other findings in the breast. IMPRESSION: * No evidence of malignancy with benign findings. RECOMMENDATIONS Bilateral * Annual screening mammography. OVERALL ASSESSMENT CATEGORY BI-RADS-2: Benign. The [employer] recommends annual screening mammography beginning at age 40 for women with average risk of breast cancer. ELECTRONICALLY SIGNED: Tank Landry M.D. on 11/29/2024 at 05:05:44 PM PT Interpreting Station ID: [id number]
== END ==
LOC: MAMMO 16:14
PROVIDERS: PCP Family Medicine; Referring Provider Family Medicine; Visit Provider Family Medicine
DX: Z12.31 Encounter for screening mammogram for malignant neoplasm of breast (principal); Z80.3 Family history of malignant neoplasm of breast; R92.333 Mammographic heterogeneous density, bilateral breasts
CPT/HCPCS: 77063; 77067

== ENCOUNTER → 2024-12-27 14:14 | Outpatient (CLI) | payer MEDICARE, BC, SELFPAY ==
--- NOTE | 2024-12-27 14:15 | DI.NM.S_ITS ---
PROCEDURE: NM ARIK PERF SPECT R&S PHARM Rest and pharmacological stress myocardial perfusion SPECT with gated imaging and ejection fraction RADIOPHARMACEUTICAL: 26.9 mCi Tc-99m tetrafosmin IV at rest and 26.2 mCi Tc-99m tetrafosmin IV at peak effect of pharmacological stress. Ubu-pri-luqhltrx was performed. INDICATIONS: shortness of breath PQRS ATTESTATIONS: Measure 322 - Is this imaging test primarily performed on a low-risk surgery patient for preoperative evaluation within 30 days preceding their low-risk non-cardiac surgery? Low-risk surgery is defined as cardiac or myocardial infarction less than 1%, including (but not limited to) endoscopic procedures, superficial procedures, cataract surgery, and excisional breast surgery: Answer: No Measure 323 - Is this imaging test performed primarily for the monitoring of an asymptomatic patient who had percutaneous coronary intervention on the visit date or within 2 years of the visit date? Answer: No Measure 324 - Is this imaging test performed primarily for the initial detection and risk assessment on an asymptomatic, low coronary heart disease patient? Low CHD risk definition = clinicians should consider the maximum number of available patient factors used to estimate risk based on Dunning (ATP III criteria), typically age, gender, diabetes, smoking status, and use of blood pressure medication, and integrate age appropriate estimates for missing elements, such as LDL or standard blood pressure. Answer: No TECHNIQUE: Radiopharmaceutical was injected at peak stress test, and also at rest. SPECT images were obtained. SPECT myocardial perfusion images were displayed in short axis, horizontal long axis, and vertical long axis views. Gated images were reviewed using [employer] software. COMPARISON: None. CARDIAC STRESS: A pharmacologic stress test was performed under the supervision of an attending staff, using an infusion of 0.4 mg of Lexiscan. Patient was unable to achieve appropriate heart rate with exercise and thus was transition to a pharmacological stress test. Hemodynamic data: There is normal blood pressure and heart rate response to pharmacologic stress. Symptoms: The patient denied anginal chest pain. Aminophylline: None EKG: No diagnostic changes of ischemia; no ectopy. FINDINGS: Raw data: There is good myocardial uptake of radiotracer. No significant motion artifacts. Zxzl-eo-tbhhx ratio is 0.29 (normal is less than 0.38 for tetrafosmin tracer). Left ventricle function: Gated images demonstrate normal left ventricular wall thickening. No segmental wall motion abnormalities. No transient ischemic dilation; TID is 0.85 (normal less than 1.3). Left ventricle resting end diastolic volume is 104 mL. Left ventricle stress ejection fraction is 81%; normal range is above 45%. Myocardial perfusion: Resting images had slight hypoperfusion in the apical segment. Stress images had no perfusion defect. No prone images obtained. IMPRESSION: 1. Negative Lexiscan myocardial perfusion scan for ischemia and infarction. Dictated by: Alexi Hernandez M.D. on 12/28/2024 at 16:45 Approved by: Alexi Hernandez M.D. on 12/28/2024 at 16:47
== END ==
PROVIDERS: PCP Family Medicine; Referring Provider Internal Medicine Cardiovascular Disease; Visit Provider Internal Medicine Cardiovascular Disease
DX: R06.02 Shortness of breath (principal)
CPT/HCPCS: 78452; 93017; A9502; J2785

== ENCOUNTER → 2025-01-02 11:11 | Outpatient (CLI) | payer MEDICARE, BC, SELFPAY | PROVIDERS: PCP Family Medicine; Referring Provider Internal Medicine Cardiovascular Disease; Visit Provider Internal Medicine Cardiovascular Disease | DX: R94.2 Abnormal results of pulmonary function studies (principal); Z79.899 Other long term (current) drug therapy | CPT/HCPCS: 94060; 94726; 94729 ==

== ENCOUNTER → 2025-04-12 14:44 | Outpatient (CLI) | payer MEDICARE, BC, SELFPAY | PROVIDERS: PCP Family Medicine; Visit Provider Urology | DX: R39.9 Unspecified symptoms and signs involving the genitourinary system (principal) | CPT/HCPCS: 87086 ==

== ENCOUNTER → 2025-04-28 11:53 | Outpatient (CLI) | payer MEDICARE, BC, SELFPAY ==
--- NOTE | 2025-04-28 11:56 | DI.RAD.S_ITS ---
PROCEDURE: XR LUMBAR SPINE 3V INDICATIONS: chronic low back pain TECHNIQUE: 3 views of the lumbar spine were acquired. COMPARISON: [facility], CR, XR LUMBAR SPINE MIN 4V, 09/03/2023, 10:21. FINDINGS: Fbba-qo-enkbufgm levoscoliosis similar to the prior exam. Moderate degenerative changes throughout the lower thoracic, lumbar spine with disc space narrowing, osteophytes and facet osseous hypertrophic changes most notably L4-5 and L5-S1 unchanged. Moderate vascular calcifications aorta and iliac vessels unchanged. Degenerative changes sacroiliac joints and hips partially imaged. Pattern of constipation. No radiographic evidence of fracture or subluxation IMPRESSION: Degenerative changes as discussed above relatively unchanged. Other findings as above. If symptoms persist or worsen, or there is high clinical suspicion of lumbar abnormality, MRI could be performed. Dictated by: Rajinder Feliz M.D. on 04/28/2025 at 21:47 Approved by: Rajinder Feliz M.D. on 04/28/2025 at 21:51
== END ==
PROVIDERS: PCP Family Medicine; Referring Provider Family Medicine; Visit Provider Family Medicine
DX: M47.816 Spondylosis without myelopathy or radiculopathy, lumbar region (principal); G62.9 Polyneuropathy, unspecified
CPT/HCPCS: 72100